=== PATIENT | male | born 1955 | race Caucasian/White ===

== ENCOUNTER 2016-10-20 13:30 | Outpatient (CLI) | payer BC ==
[~2016-10-20] VITALS: Ht 180.3 cm; Wt 95.3 kg
[~2016-10-20 13:30] MED LIST: ALLERGY INJECTION; PRD50T PO; RNT150T PO
== END 2016-10-20 13:50 ==
LOC: PREOP 13:30
PROVIDERS: ATTEND Surgery
DX: Z01.818 Encounter for other preprocedural examination (principal); Z12.11 Encounter for screening for malignant neoplasm of colon

== ENCOUNTER 2016-10-24 08:25 | Day surgery (SDC) | payer BC ==
[~2016-10-24] VITALS: Ht 180.3 cm; Wt 95.3 kg
[2016-10-24 08:35] VITALS: BP 140/106
[2016-10-24] MEDS ORDERED: NS IV 1000 ML 1,000 ML ONE (08:39)
[2016-10-24] MEDS ORDERED: NS IV 1000 ML 1,000 ML IV PRN (08:45)
--- NOTE | 2016-10-24 09:14 | Progress Note-Pre Operative ---
Pre-Operative Progress Note H&P Reviewed The H&P was reviewed, patient examined and no changes noted. Date H&P Reviewed: Oct 24, 2016 Time H&P Reviewed: 09:14 Pre-Operative Diagnosis: SCREENING COLONOSCOPY KENJI SMALLS DO Oct 24, 2016 9:14 am
[2016-10-24] MEDS ORDERED: proPOfol 200 MG/20 ML (DIPRIVAN) VIAL IV ONE (10:01)
[2016-10-24] MEDS ORDERED: MIDAZOLAM 2 MG/2 ML (VERSED) VIAL ONE (10:01)
--- NOTE | 2016-10-24 10:44 | Progress Note-Post Operative ---
Post-Operative Progess Note Surgeon (s)/Auto Bumper Straightener (s) Surgeon KENJI SMALLS DO Auto Bumper Straightener: 0 Pre-Operative Diagnosis SCREENING COLONOSCOPY Post-Operative Diagnosis diverticulosis Post-Op Procedure Note Date of Procedure: Oct 24, 2016 Name of Procedure Performed: colonoscopy Description of the Procedure: see note Findings of the Procedure see note Anesthesia Type per densitometrist Estimated blood loss (mL): none Specimen(s) collected/removed none KENJI SMALLS DO Oct 24, 2016 10:44 am
[2016-10-24 10:55] VITALS: BP 117/88
--- NOTE | 2016-10-24 11:03 | Discharge Inst-Simple/Standard ---
Discharge Inst-Standard Patient Instructions/Follow Up Plan of Care/Instructions/FU: Patient should follow up with Dr. Ruiz as needed Patient will need to increase fiber in his diet. Activity as Tolerated: Yes Discharge Diet: Other Diet (high fiber diet. ) NYA DE LEON APRN Oct 24, 2016 11:03
[2016-10-24 11:18] VITALS: BP 142/98
[2016-10-24 11:23] VITALS: BP 142/98
--- NOTE | 2016-10-24 12:50 | PROCEDURE REPORT ---
PROCEDURE PHYSICIAN: KENJI SMALLS DATE OF PROCEDURE: 10/24/2016 PREOPERATIVE DIAGNOSIS: Screening colonoscopy. POSTOPERATIVE DIAGNOSIS: Diverticulosis. PROCEDURE: Colonoscopy. SURGEON: Sara. ANESTHESIA: Per BRANCH LIBRARY CLERK. ESTIMATED BLOOD LOSS: None. COMPLICATIONS: None. INDICATIONS: The patient is a 61-year-old male without having colonoscopy performed before. He understood risks and benefits of procedure and wished to proceed with procedure. Consent was signed on the chart. PROCEDURE: The patient was taken to the endoscopy suite, placed in left lateral recumbent position. Timeout was performed. Digital rectal exam was performed. There are no palpable polyps, masses or ulcerations. The scope was inserted in the rectum and advanced all of the way to the cecum with minimal difficulty. Prep was adequate. The scope was slowly retracted back. There were no polyps, masses, ulcerations within the cecum, ascending, transverse, and descending colon. Within the sigmoid colon, there is minimal amount of diverticulosis present. There are no polyps, masses, ulcerations. The scope was continued to be slowly retracted back into the rectum, where the no other pathology was noted. The scope was inserted and removed multiple times without seeing any other pathology. The scope was then slowly retracted out until completely removed. The patient tolerated procedure well without any complications taken to recovery room in stable condition. RECOMMENDATIONS: The patient will need repeat colonoscopy in 10 years unless family history of colon cancer which would then be 5 years. If he has any problems prior to that, he should be reevaluated at that time. The patient should be on a high fiber diet. Job ID: [id number] Dictated Date: 10/24/2016 10:46:36 Pantograph Ii Engraver Date: 10/24/2016 12:46:00 / wei
== END 2016-10-24 11:25 | disposition home or self-care (01) ==
LOC: ENDO 08:25
PROVIDERS: ATTEND Surgery
DX: Z12.11 Encounter for screening for malignant neoplasm of colon (principal); K57.30 Diverticulosis of large intestine without perforation or abscess without bleeding

== ENCOUNTER 2018-07-02 08:52 | Inpatient (IN) | payer BC ==
[2018-07-02] VITALS (13 sets, daily range): BP systolic 112–168; BP diastolic 78–111
[~2018-07-02] VITALS: Ht 180.3 cm; Wt 95.9 kg
--- NOTE | 2018-07-02 09:14 | ED Chest Pain ---
General Stated Complaint: CHEST PAIN Source: patient, family (daughter) Exam Limitations: no limitations History of Present Illness Date Seen by Provider: Jul 02, 2018 Time Seen by Provider: 08:53 Initial Comments Patient presents to ER by private conveyance with his daughter and chief complaint that about 6:30 this morning when he got up to get a cup of coffee and started experiencing some sharp chest pain in the center of his chest that did not radiate. No nausea or sweats cough shortness of breath. Is not worse when he takes deep inspiration or pushing on his chest. He says he works out all the time so he wasn't sure if this was just soreness from working out or not but is different from anything as ever felt before. No primary history of coronary artery disease nor primary family HISTORY of coronary artery disease or early onset. The pain lasted for about an hour then went away. He took 2 aspirin is not sure what strength. He called Dr. De Luna's primary care doctor who worked him in this afternoon but then advised him to go ahead and come the ER for evaluation. No history of asthma, COPD. he does have a history of GERD but has not taken anything for that recently. He does drink occasional whiskey with his last drink being 2 days ago on the weekend. He is having no symptoms at this time. He's never had a heart catheterization or stress test. He states that he has elevated blood pressure at the doctor's office sometimes but has never been prescribed anything and has a blood pressure cuff that he uses at home and his blood pressure usually runs 120s over 80s. Allergies and Home Medications Allergies Coded Allergies: naproxen (Verified Allergy, Unknown, anaphylaxis, 07/02/18) Home Medications No Active Prescriptions or Reported Meds Patient Home Medication List Home Medication List Reviewed: Yes Review of Systems Review of Systems Constitutional: No chills, No fever EENTM: No Blurred Vision, No Double Vision Respiratory: Denies Cough, Denies Shortness of Air Cardiovascular: See HPI, Chest Pain; Denies Edema, Denies Lightheadedness, Denies Palpitations Gastrointestinal: Denies Abdominal Pain, Denies Constipated, Denies Diarrhea, Denies Nausea Genitourinary: Denies Burning, Denies Discharge Musculoskeletal: No back pain, No joint pain Skin: No pruritus, No rash Psychiatric/Neurological: Denies Headache, Denies Numbness Past Zafrbjh-Nnrcic-Ecfjzx Hx Patient Social History Alcohol Use: Occasionally Uses Alcohol Beverage of Choice: Whiskey Recreational Drug Use: No Smoking Status: Never a Smoker Recent Hopitalizations: No Immunizations Up To Date Tetanus Booster (TDap): Unknown Seasonal Allergies Seasonal Allergies: Yes Past Medical History Reproductive Disorders: No Physical Exam Vital Signs Vital Signs - First Documented 07/02/18 08:52 Temp 98.0 Pulse 65 Resp 18 B/P (MAP) 156/113 (127) Pulse Ox 94 O2 Delivery Room Air Capillary Refill : Height, Weight, BMI Height: 5'11.00" Weight: 210lbs. 0.0oz. 95.788405gx; 29.3 BMI Method: General Appearance: No Apparent Distress, WD/WN HEENT: PERRL/EOMI, Pharynx Normal, Moist Mucous Membranes Neck: Full Range of Motion, Normal Inspection Respiratory: Chest Non Tender, Lungs Clear, Normal Breath Sounds, No Accessory Muscle Use, No Respiratory Distress Cardiovascular: Regular Rate, Rhythm, No Edema Gastrointestinal: Normal Bowel Sounds, Non Tender, Soft Extremity: Normal Capillary Refill, No Pedal Edema Neurologic/Psychiatric: Alert, Oriented x3 Skin: Normal Color, Warm/Dry Progress/Results/Core Measures Results/Orders Lab Results Laboratory Tests Test 07/02/18 09:05 Range/Units White Blood Count 5.9 4.3-11.0 10^3/uL Red Blood Count 5.45 4.35-5.85 10^6/uL Hemoglobin 17.3 13.3-17.7 G/DL Hematocrit 50 40-54 % Mean Corpuscular Volume 91 80-99 FL Mean Corpuscular Hemoglobin 32 25-34 PG Mean Corpuscular Hemoglobin Concent 35 32-36 G/DL Red Cell Distribution Width 13.9 10.0-14.5 % Platelet Count 349 130-400 10^3/uL Mean Platelet Volume 9.2 7.4-10.4 FL Neutrophils (%) (Auto) 65 42-75 % Lymphocytes (%) (Auto) 23 12-44 % Monocytes (%) (Auto) 9 0-12 % Eosinophils (%) (Auto) 3 0-10 % Basophils (%) (Auto) 1 0-10 % Neutrophils # (Auto) 3.8 1.8-7.8 X 10^3 Lymphocytes # (Auto) 1.3 1.0-4.0 X 10^3 Monocytes # (Auto) 0.6 0.0-1.0 X 10^3 Eosinophils # (Auto) 0.2 0.0-0.3 10^3/uL Basophils # (Auto) 0.0 0.0-0.1 10^3/uL Prothrombin Time 12.8 12.2-14.7 SEC INR Comment 1.0 0.8-1.4 Activated Partial Thromboplast Time 28 24-35 SEC Sodium Level 140 135-145 MMOL/L Potassium Level 4.2 3.6-5.0 MMOL/L Chloride Level 108 H 98-107 MMOL/L Carbon Dioxide Level 22 21-32 MMOL/L Anion Gap 10 5-14 MMOL/L Blood Urea Nitrogen 17 7-18 MG/DL Creatinine 1.22 0.60-1.30 MG/DL Estimat Glomerular Filtration Rate > 60 BUN/Creatinine Ratio 14 Glucose Level 110 H 70-105 MG/DL Calcium Level 9.1 8.5-10.1 MG/DL Corrected Calcium 8.9 8.5-10.1 MG/DL Magnesium Level 2.4 1.8-2.4 MG/DL Total Bilirubin 0.9 0.1-1.0 MG/DL Aspartate Amino Transf (AST/SGOT) 35 H 5-34 U/L Alanine Aminotransferase (ALT/SGPT) 50 0-55 U/L Alkaline Phosphatase 69 40-136 U/L Myoglobin 185.5 H 10.0-92.0 NG/ML Troponin I 0.32 *H <0.30 NG/ML Total Protein 7.2 6.4-8.2 GM/DL Albumin 4.3 3.2-4.5 GM/DL My Orders Orders - ROSIE,BECK J Cbc With Automated Diff (07/02/18 09:06) Magnesium (07/02/18 09:06) Chest 1 View, Ap/Pa Only (07/02/18 09:06) Ekg Tracing (07/02/18 09:06) Cardiac Profile 1 (07/02/18 09:06) Comprehensive Metabolic Panel (07/02/18 09:06) Myoglobin Serum (07/02/18 09:06) Protime With Inr (07/02/18 09:06) Partial Thromboplastin Time (07/02/18 09:06) O2 (07/02/18 09:06) Monitor-Rhythm Ecg Trace Only (07/02/18 09:06) Lipid Panel (07/03/18 06:00) Aspirin Chewable Tablet (Baby Aspirin Ch (07/02/18 09:15) Saline Lock/Iv-Start (07/02/18 09:06) BNP (07/02/18 09:06) Medications Given in ED Current Medications Medications Dose Ordered Sig/Shari Route Start Time Stop Time Status Last Admin Dose Admin Aspirin 162 mg ONCE ONCE PO 07/02/18 09:15 07/02/18 09:16 DC 07/02/18 09:21 81 MG Vital Signs/I&O 07/02/18 08:52 Temp 98.0 Pulse 65 Resp 18 B/P (MAP) 156/113 (127) Pulse Ox 94 O2 Delivery Room Air Progress Progress Note : Time: 09:12 Progress Note He is not having any pain at this time. We are not sure how much aspirin he actually took some was given 2 more baby aspirin to chew up and swallow. Initial EKG doesn't show a STEMI. Chest wall is nontender and there is no pleuritic nature to the pain. 14 points low risk by ED ACS score. If the patient also has: (1) EKG without new ischemic changes and (2) negative initial and 2-hour troponins, then this patient is safe for discharge to early outpatient follow-up investigation (or proceed to earlier inpatient testing). If EKG with ischemic changes or positive troponin, they are not low risk and require normal risk stratification. Initial ECG Impression Date: Jul 02, 2018 Initial ECG Impression Time: 08:59 Initial ECG Rate: 70 Initial ECG Rhythm: Normal Sinus Initial ECG Intervals: Normal Initial ECG Impression: Normal, Nonspecific Changes Initial ECG Comparisson: No Previous ECG Available Comment No ST elevation or depression. Departure Communication (Admissions) Time/Spoke to Admitting Phy: 09:48 Dr. Alfaro agrees to accept the patient. Time/Spoke to Consulting Phy: 09:48 Discussed the case lab imaging findings with Dr. Yun, lab head and he wants Brilinta, heparin drip and echocardiogram and nothing by mouth status that he can try and catheter him later today if possible. Impression Primary Impression: NSTEMI (non-ST elevated myocardial infarction) Disposition: 09 ADMITTED INPATIENT Condition: Stable Admissions Decision to Admit Reason: Admit from ER (General) Decision to Admit/Date: Jul 02, 2018 Time/Decision to Admit Time: 09:48 Departure-Patient Inst. Referrals: ROSA DE LUNA MD (PCP) Primary Care Physician Scripts No Active Prescriptions or Reported Meds Copy Copies To 1: ROSA DE LUNA MD, TITUS J Jul 02, 2018 09:14
[2018-07-02 09:15] LABS: BASOPHILS % (AUTO) 1 % (0-10); EOSINOPHILS # (AUTO) 0.2 10^3/uL (0.0-0.3); EOSINOPHILS % (AUTO) 3 % (0-10); HEMATOCRIT 50 % (40-54); HEMOGLOBIN 17.3 G/DL (13.3-17.7); LYMPHOCYTES # (AUTO) 1.3 X 10^3 (1.0-4.0); LYMPHOCYTES % (AUTO) 23 % (12-44); MEAN CORPUSCULAR HEMOGLOBIN 32 PG (25-34); MEAN CORPUSCULAR HGB CONC 35 G/DL (32-36); MEAN CORPUSCULAR VOLUME 91 FL (80-99); MEAN PLATELET VOLUME 9.2 FL (7.4-10.4); MONOCYTES # (AUTO) 0.6 X 10^3 (0.0-1.0); MONOCYTES % (AUTO) 9 % (0-12); NEUTROPHILS # (AUTO) 3.8 X 10^3 (1.8-7.8); NEUTROPHILS % (AUTO) 65 % (42-75); PLATELET COUNT 349 10^3/uL (130-400); RED BLOOD COUNT 5.45 10^6/uL (4.35-5.85); RED CELL DISTRIBUTION WIDTH 13.9 % (10.0-14.5); WHITE BLOOD COUNT 5.9 10^3/uL (4.3-11.0)
[2018-07-02] MEDS ORDERED: ASPIRIN 81 MG CHEW (CHILDREN'S ASA) PO ONE (09:15)
[2018-07-02 09:32] LABS: ALANINE AMINOTRANSFERASE 50 U/L (0-55); ALBUMIN 4.3 GM/DL (3.2-4.5); ALKALINE PHOSPHATASE 69 U/L (40-136); BILIRUBIN,TOTAL 0.9 MG/DL (0.1-1.0); BUN/CREATININE RATIO 14; CALCIUM 9.1 MG/DL (8.5-10.1); CARBON DIOXIDE 22 MMOL/L (21-32); CHLORIDE 108 MMOL/L (98-107); CREATININE SERUM 1.22 MG/DL (0.60-1.30); GFR ESTIMATED > 60; GLUCOSE 110 MG/DL (70-105); MAGNESIUM 2.4 MG/DL (1.8-2.4); POTASSIUM 4.2 MMOL/L (3.6-5.0); PROTHROMBIN TIME PATIENT 12.8 SEC (12.2-14.7); SODIUM 140 MMOL/L (135-145); TOTAL PROTEIN 7.2 GM/DL (6.4-8.2)
--- NOTE | 2018-07-02 09:38 | Diagnostic Imaging Report ---
INDICATION: Chest pain starting earlier in the day. TECHNIQUE: Single view chest 9:11 AM. CORRELATION STUDY: None FINDINGS: Given technique, the heart size, mediastinal configuration and pulmonary vascularity are within normal limits. The lungs are clear with no consolidating infiltrate. There is no significant effusion or pneumothorax. IMPRESSION: 1. No radiographic findings to suggest acute abnormality of the chest. Dictated by: Dictated on workstation # [id number]
[2018-07-02 09:39] LABS: MYOGLOBIN SERUM 185.5 NG/ML (10.0-92.0)
[2018-07-02] MEDS ORDERED: HEParin DRIP 25000 UNIT/500ML 500 ML IV ONE (09:50)
[2018-07-02] MEDS ORDERED: HEParin 1000 UNIT/ML (10ML VIAL) FOR BOLUS IV SCH (10:00)
[2018-07-02] MEDS ORDERED: TICAGRELOR 90 MG TABLET (BRILINTA) PO ONE (10:00)
[2018-07-02] MEDS ORDERED: meTOproloL SUCCINATE 50 MG (TOPROL XL) TAB PO SCH (10:45)
[2018-07-02] MEDS ORDERED: NITROGLYCERIN 0.4 MG SL TABS BTL 25'S SL PRN (11:15)
[2018-07-02] MEDS ORDERED: lisINopril 10 MG (PRINIVIL) TABLET PO NR (11:15)
[2018-07-02] MEDS ORDERED: ONDANSETRON 4 MG/2 ML (SDV) Z0FRAN IV PRN (11:15)
[2018-07-02] MEDS ORDERED: CATHETER FLUSH 10 ML SYR IV PRN (11:15)
[2018-07-02] MEDS ORDERED: morphine INJ 4 MG/ML 1 ML (VIAL/SYRINGE) IV PRN (11:30)
[2018-07-02] MEDS: NS IV 1000 ML 1,000 ML IV SCH ×4 (11:41→22:57)
[2018-07-02] MEDS ORDERED: HEParin (CATH LAB) 2,000 ML IV ONE (12:01)
[2018-07-02] MEDS ORDERED: LIDOCAINE 1% INJ 20 ML 20 ML VIAL ONE (12:01)
[2018-07-02] MEDS ORDERED: HEParin DRIP 25000 UNIT/500ML 500 ML IV SCH (12:05)
[2018-07-02] MEDS ORDERED: MIDAZOLAM 5 MG/5 ML (VERSED) VIAL ONE (12:06)
[2018-07-02] MEDS ORDERED: fentaNYL INJECTION 100 MCG/2 ML AMP ONE (12:06)
[2018-07-02] MEDS ORDERED: HEParin 1000 UNIT/ML (10ML VIAL) FOR BOLUS ONE (13:01)
[2018-07-02] MEDS ORDERED: NITRO DRIP 25000 MCG/D5W 250 ML IV ONE (13:14)
--- NOTE | 2018-07-02 13:31 | Coronary Angiography & PCI ---
Coronary Angiography & PCI DATE OF PROCEDURE: 07/02/18 INDICATION: Non-STEMI PREOPERATIVE DIAGNOSIS: Non-STEMI POSTOPERATIVE DIAGNOSIS: Severe OM stenosis treated successfully with drug- eluting stent. HISTORY: This is a 62-year-old gentleman who presents with a complaint of chest pain since 630 this morning. The chest pain is sharp, substernal, does not radiate, no associated other cardiac symptoms. No exacerbating or relieving factors. Moderate to severe intensity. Patient does not have any significant medical or cardiac history. He specifically denies smoking, diabetes, hyperlipidemia. No significant premature family history of CAD. Possible history of hypertension.Therefore, the patient was scheduled for coronary angiography. PROCEDURES PERFORMED: 1.Coronary angiography. 2.Left heart catheterization. 3.PCI to the OM1. COMPLICATIONS: None. SPECIMENS: None. ESTIMATED BLOOD LOSS: 10 mL ANESTHESIA: Conscious sedation ANTICOAGULATION: IV heparin CONTRAST: 187 mL. FLUOROSCOPY: FLOUROSCOPY DOSE: [id number]. PROCEDURE DETAILS: The patient is a 62 male and was brought to the label operator after informed consent was taken. All the risks and complications were explained in detail; this included the risk of bleeding, vascular damage, stroke , OK and even . The patient was draped and prepped in the usual sterile fashion. Access was gained in the right femoral artery with a 6 Polish sheath. Coronary angiography was performed with a JR4 and a JL4 catheter. Left heart catheterization was performed with a pigtail catheter. Due to significant tortuosity in the right iliac artery, we exchanged the short sheath to a long 6 Polish by 45 cm sheath. FINDINGS: 1.Left main: Patent. 2.LAD: Mild disease. Severe ostial disease of a small first diagonal artery. 3.Left circumflex artery: Severe ostial stenosis of OM1. Stenosis severity is 99 percent. BHARAT 2 flow. 4.RCA: Mild disease. 5.Left heart catheterization: LV pressure 155/11 mmHg, LVEDP 14 mmHg. Aortic pressure 156/105 mmHg. No gradient across the aortic valve. Normal LV function with no wall motion abnormalities. RECOMMENDATIONS: PCI to OM1 is recommended. INTERVENTION DETAILS: EBU 3.5 guide catheter, whisper extra-support guidewire, IV heparin for anticoagulation. ACT was done once which was 195 seconds. Patient was given bolus aspirin and Brilinta. The lesion was crossed with the whisper wire and direct stenting was done with a science Amber 2.75 x 12 mm drug-eluting stent at 14 sho for 22 seconds. Mild spasm distal to the stent was noted which responded to 200 g of IC nitroglycerin. The stent was postdilated with an ASCENDANT MDX Quantum 3.0 x 8 mm balloon. The mid section was postdilated at 14 sho for 15 seconds and the proximal segment was postdilated at 16 sho for 32 seconds. Excellent angiographic results. The wire was taken out and showed no residual stenosis with BHARAT-3 flow distally. The patient tolerated the procedure well and did not have any complication. Right femoral artery was closed with the mynx device. CONCLUSIONS: 1. Severe OM1 stenosis treated successfully with drug-eluting stent. 2. Dual antiplatelet therapy for at least a year. Lisinopril, metoprolol, high -dose statin. 3. overnight in the ICU. 4. Echocardiogram. Stacey Yun MD, FACP, FACC, [facility] Interventional Cardiology Catarina YUN MD Jul 02, 2018 1:31 pm
--- NOTE | 2018-07-02 13:31 | Cardiac Procedure Note-CS/ASA ---
Pre-Procedure Note Pre-Op Procedure Note H&P Reviewed The H&P was reviewed, patient examined and no changes noted. Date H&P Reviewed: Jul 02, 2018 Time H&P Reviewed: 12:30 Conscious Sedation Pre-Proced Time 12:30 ASA Score 3 For ASA 3 and 4: Consider anesthesia and medical clearance. Also, for patients with a history of failed moderate sedation consider anesthesia. Airway Lungs Heart ASA score ASA 1: a normal healthy patient ASA 2: a patient with a mild systemic disease (mid diabetes, controlled hypertension, obesity ASA 3: a patient with a severe systemic disease that limits activity (angina , COPD, prior Myocardial infarction) ASA 4: a patient with an incapacitating disease that is a constant threat to life (CHF, renal failure) ASA 5: a moribund patient not expected to survive 24 hrs. (ruptured aneurysm) ASA 6: a declared brain patient whose organs are being harvested. For emergent operations, add the letter E after the classification Mallampati Classification Grade 1 Sedation Plan Analgesia, Amnesia, Plan communicated to team members, Discussed options with patient/fam, Discussed risks with patient/fam The patient is an appropriate candidate to undergo the planned procedure, sedation, and anesthesia. The patient immediately re-assessed prior to indication. Catarina PICKARD MD Jul 02, 2018 13:31
--- NOTE | 2018-07-02 13:31 | Consultation-Cardiology ---
HPI-Cardiology Cardiology Consultation: Date of Consultation 07/02/18 Date of Admission Attending Physician Kristine Alfaro MD Admitting Physician Collins Wilson MD Consulting Physician Catarina YUN MD HPI: Time Seen by a Provider: 12:30 Chief Complaint: Chest pain This is a 62-year-old gentleman who presents with a complaint of chest pain since 630 this morning. The chest pain is sharp, substernal, does not radiate, no associated other cardiac symptoms. No exacerbating or relieving factors. Moderate to severe intensity. Patient does not have any significant medical or cardiac history. He specifically denies smoking, diabetes, hyperlipidemia. No significant premature family history of CAD. Possible history of hypertension. Review of Systems-Cardiology Review of Systems Constitutional: As described under HPI; No As described under HPI, No no symptoms reported, No chills, No fever, No lightheadedness Eyes: No As described under HPI, No no symptoms reported, No blindness, No blurred vision, No contact lenses, No drainage, No decreased acuity, No foreign body sensation, No pain, No vision change Ears/Nose/Throat: No As described under HPI, No no symptoms reported, No chronic hearing loss, No ear discharge, No ear pain, No nasal drainage, No ulcerations Respiratory: No no symptoms reported; As described under HPI; No As described under HPI, No cough, No orthopnea, No shortness of breath, No SOB with excertion Cardiovascular: No no symptoms reported; As described under HPI; No As described under HPI; chest pain; No edema, No irregular heart rate, No lightheadedness, No palpitations Gastrointestinal: No no symptoms reported, No As described under HPI, No abdomen distended, No abdominal pain, No blood streaked bowels, No constipation , No diarrhea, No nausea, No vomiting, No stool coloration changes Genitourinary: No As described under HPI, No burning, No dysuria, No discharge , No frequency, No flank pain, No hematuria, No urgency Skin: No rash, No skin related problems, No ulcerations Psychiatric/Neurological: No anxiety, No depression, No seizure, No focal weakness, No syncope Hematologic: No bleeding abnormalities MLZ-Bcilgs-Nbgtxg Hx Patient Social History Alcohol Use: Denies Use Recreational Drug Use: No Smoking Status: Never a Smoker Recent Foreign Travel: No Recent Infectious Disease Expo: No Hospitalization with Isolation: Denies Physical Abuse Screen: No Sexual Abuse: No Immunizations Up To Date Tetanus Booster (TDap): Unknown Date of Influenza Vaccine: Jun 02, 2017 Past Medical History PMH As described under Assessment. Allergies and Home Medications Allergies Coded Allergies: naproxen (Verified Allergy, Unknown, anaphylaxis, 07/02/18) Home Medications No Active Prescriptions or Reported Meds Patient Home Medication List Home Medication List Reviewed: Yes Physical Exam-Cardiology Physical Exam Vital Signs/I&O 07/02/18 07/02/18 07/02/18 07/02/18 08:52 10:41 10:52 12:09 Temp 98.0 98.7 Pulse 65 64 67 68 Resp 18 18 B/P (MAP) 156/113 (127) 174/111 (132) 168/111 (130) Pulse Ox 94 98 O2 Delivery Room Air Room Air Room Air Capillary Refill : Less Than 3 Seconds Constitutional: appears stated age, AAO x 3; No apparent distress; well- developed, well-nourished HEENT: PERRL; No normal ENT inspection, No TMs normal, No pharynx normal, No scleral icterus (R), No scleral icterus (L), No pale conjunctivae (R), No pale conjunctivae (L), No photophobia, No TM abnormal (R), No TM abnormal (L), No pharyngeal erythema, No tonsillar exudate, No other, No discharge, No EOMI; hearing is well preserved; No hard of hearing; oral hygience is good; No ulceration, No xanthelasmas are seen Neck: No non-tender, No full range of motion, No supple, No normal inspection, No carotid bruit, No limited range of motion, No lymphadenopathy (R), No lymphadenopathy (L), No tender lateral, No tender midline, No thyromegaly, No other; carotid pulses are 2 + bilaterally; No with good upstrokes Respiratory: No accessory muscle use, No respiratory distress, No chest tender , No chest expansion is symmetric; chest is bilaterally symmetric; No lungs clear to percussion; lungs clear to auscultation; No crackles, No rhonchi, No rales, No stridor, No wheezing, No pleural rub, No other Cardiovascular: regular rate-rhythm; No irregularly irregular, No extra beats, No parasternal heave is noted, No JVD, No edema, No bradycardia, No tachycardia , No point of maximal impulse, No cardiac thrills are palpable; S1 and S2; No gallop/S3, No gallop/S4, No diastolic murmur, No systolic murmur, No friction rub, No click, No other Gastrointestinal: No tender, No soft, No round, No distended, No pulsatile mass , No organomegaly, No guarding, No rebound, No tenderness, No hernia, No mass, No audible bowel sounds, No abnormal bowel sounds, No abdominal bruits, No spleenomegaly, No other Rectal: deferred Extremities: No normal range of motion, No non-tender, No normal inspection, No pedal edema, No calf tenderness, No normal capillary refill, No pelvis stable , No calf tenderness, No inflammation, No pedal edema, No slow capillary refill , No swelling, No other, No abrasion, No clubbing, No cyanosis, No ecchymosis, No laceration, No no lower extremity edema bilateral, No significant edema, No tenderness, No wound Neurologic/Psychiatric: no motor/sensory deficits, alert, normal mood/affect, oriented x 3, power is 5/5 both on sides Skin: No normal color, No warm/dry, No cyanosis, No cool, No diaphoresis, No damp, No ecchymosis, No jaundice, No mottled, No pallor, No rash, No tattoos/ piercings, No ulcerations, No rash on exposed areas, No ulcerations on exposed areas, No other Data Review Labs Laboratory Tests 07/02/18 09:05: White Blood Count 5.9, Red Blood Count 5.45, Hemoglobin 17.3, Hematocrit 50, Mean Corpuscular Volume 91, Mean Corpuscular Hemoglobin 32, Mean Corpuscular Hemoglobin Concent 35, Red Cell Distribution Width 13.9, Platelet Count 349, Mean Platelet Volume 9.2, Neutrophils (%) (Auto) 65, Lymphocytes (%) (Auto) 23, Monocytes (%) (Auto) 9, Eosinophils (%) (Auto) 3, Basophils (%) (Auto) 1, Neutrophils # (Auto) 3.8, Lymphocytes # (Auto) 1.3, Monocytes # (Auto) 0.6, Eosinophils # (Auto) 0.2, Basophils # (Auto) 0.0, Prothrombin Time 12.8, INR Comment 1.0, Activated Partial Thromboplast Time 28, Sodium Level 140, Potassium Level 4.2, Chloride Level 108H, Carbon Dioxide Level 22, Anion Gap 10 , Blood Urea Nitrogen 17, Creatinine 1.22, Estimat Glomerular Filtration Rate > 60, BUN/Creatinine Ratio 14, Glucose Level 110H, Calcium Level 9.1, Corrected Calcium 8.9, Magnesium Level 2.4, Total Bilirubin 0.9, Aspartate Amino Transf ( AST/SGOT) 35H, Alanine Aminotransferase (ALT/SGPT) 50, Alkaline Phosphatase 69, Myoglobin 185.5H, Troponin I 0.32*H, B-Type Natriuretic Peptide 24.7, Total Protein 7.2, Albumin 4.3 ECG Impression ECG Initial ECG Rhythm: Normal Sinus Initial ECG Impression: Nonspecific Changes A/P-Cardiology Assessment/Admission Diagnosis Non-STEMI, Possible hypertension Plan Positive cardiac enzymes with prolonged episode of chest pain. Working diagnosis is non-STEMI. Bolus aspirin, Brilinta, IV heparin. Echocardiogram. Coronary angiography is recommended. All risks and complication explained in detail and informed consent taken. Hypertension: We'll start lisinopril and metoprolol. Check lipid profile. Thank you for your consultation. Please call me if you have any questions. Stacey Yun MD, FACP, FACC, FSCAI, FHRS, CCDS Interventional Cardiology Cardiac Electrophysiology Vascular Medicine and Endovascular Interventions Clinical Quality Measures DVT/VTE Risk/Contraindication: Risk Factor Score Per Nursin RFS Level Per Nursing on Admit: 2=Moderate Catarina YUN MD Jul 02, 2018 1:30 pm
[2018-07-02] MEDS ORDERED: PATIENT MAY USE OWN MEDS, ALL PO SCH (13:45)
--- NOTE | 2018-07-02 15:26 | History & Physical-Hospitalist ---
History of Present Illness HPI/Chief Complaint Pt is a 62yoCM who presented to the ER with a CC of chest pain that started this morning shortly after waking up. He states that he got up this morning and got coffee and after taking a sip developed sharp centralized chest pain. He felt nauseated with this as well but denied any SOB. He had no radiation to his jaw or neck but did have back pain. He has had no previous incidents of chest pain. He checked his BP and found it to be 180/118. He attempted to call his PCP after the pain persisted for an hour and was directed to the ER. He was found to have a Troponin of 0.32 in the ER and was admitted for NSTEMI. He states his pain is now resolved and his only concern is that he has some back pain from laying in the bed. Source: patient Date Seen 07/02/18 Time Seen by a Provider: 15:22 Attending Physician Juani Alfaro MD PCP Collins Wilson MD Referring Physician Date of Admission Jul 02, 2018 at 10:01 Home Medications & Allergies Home Medications Reviewed patient Home Medication Reconciliation performed by pharmacy medication reconciliations vehicle operator technician and/or nursing. Patients Allergies have been reviewed. Allergies Allergies Coded Allergies naproxen (Verified Allergy, Unknown, anaphylaxis, 07/02/18) Past Dzomxdi-Djthln-Flzxpu Hx Past Med/Social Hx: Reviewed Nursing Past Med/Soc Hx Patient Social History Alcohol Use: Denies Use Alcohol Beverage of Choice: Whiskey Recreational Drug Use: No Smoking Status: Never a Smoker Physical Abuse Screen: No Sexual Abuse: No Recent Foreign Travel: No Contact w/other who traveled: No Recent Hopitalizations: No Recent Infectious Disease Expo: No Immunizations Up To Date Tetanus Booster (TDap): Unknown Pediatric: No Date of Influenza Vaccine: Jun 02, 2017 Seasonal Allergies Seasonal Allergies: No Past Medical History Surgeries: Abdominal, Orthopedic Cardiac: Hypertension Reproductive: No History of Blood Disorders: No Family History Reviewed Nursing Family Hx No Pertinent Family Hx Review of Systems Constitutional: No diaphoresis EENTM: No blurred vision, No double vision, No nose congestion, No throat pain Respiratory: No cough, No dyspnea on exertion, No orthopnea, No short of breath Cardiovascular: see HPI Gastrointestinal: No abdominal pain, No constipation, No diarrhea, No nausea, No vomiting Genitourinary: No dysuria, No frequency Musculoskeletal: No joint pain, No muscle pain Skin: No lesions, No rash Psychiatric/Neurological: Denies Headache, Denies Numbness, Denies Tingling All Other Systems Reviewed Negative Unless Noted: Yes (Negative excepted noted.) Physical Exam Physical Exam Vital Signs Vital Signs - First Documented 07/02/18 08:52 Temp 98.0 Pulse 65 Resp 18 B/P (MAP) 156/113 (127) Pulse Ox 94 O2 Delivery Room Air Capillary Refill : Less Than 3 Seconds Height, Weight, BMI Height: 5'11.00" Weight: 211lbs. 0.0oz. 95.133156my; 29.4 BMI Method:Stated General Appearance: No Apparent Distress, WD/WN HEENT: PERRL/EOMI, Moist Mucous Membranes Neck: Non Tender, Supple Respiratory: Lungs Clear, No Respiratory Distress Cardiovascular: Regular Rate, Rhythm, No Murmur Gastrointestinal: Normal Bowel Sounds, Non Tender, Soft Extremity: Normal Capillary Refill, No Calf Tenderness Neurologic/Psychiatric: Alert, Oriented x3, Normal Mood/Affect Skin: Normal Color, Warm/Dry Results Results/Procedures Labs Laboratory Tests 07/02/18 09:05 07/03/18 03:45 Patient resulted labs reviewed. 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 noted with MAAME placed Continue DAPT Monitor in ICU Echo ordered Continue on statin, BB, JUSTUS (2) CAD (coronary artery disease) Assessment & Plan: microbiology lab technician results as above Qualifiers: Coronary Disease-Associated Artery/Lesion type: [place] artery [place] vs. transplanted heart: [place] heart Associated angina: with unstable angina Qualified Codes: I25.110 - Atherosclerotic heart disease of [place] coronary artery with unstable angina pectoris (3) Elevated blood pressure reading Assessment & Plan: Denies diagnosis of HTN Elevated on arrival Trend Clinical Quality Measures DVT/VTE Risk/Contraindication: Risk Factor Score Per Nursin RFS Level Per Nursing on Admit: 2=Moderate JUANI ALFARO MD Jul 02, 2018 15:26
[2018-07-02] MEDS: TICAGRELOR 90 MG TABLET (BRILINTA) PO SCH (20:42)
[2018-07-02] MEDS ORDERED: ATORVASTATIN 40 MG (LIPITOR) TABLET PO SCH (21:00)
[2018-07-02] MEDS ORDERED: ATORVASTATIN 80 MG (LIPITOR) TABLET PO SCH (21:00)
[2018-07-03] VITALS: BP 112/80
[2018-07-03 03:53] LABS: BASOPHILS % (AUTO) 0 % (0-10); EOSINOPHILS # (AUTO) 0.2 10^3/uL (0.0-0.3); EOSINOPHILS % (AUTO) 2 % (0-10); HEMATOCRIT 47 % (40-54); HEMOGLOBIN 15.8 G/DL (13.3-17.7); LYMPHOCYTES # (AUTO) 1.6 X 10^3 (1.0-4.0); LYMPHOCYTES % (AUTO) 18 % (12-44); MEAN CORPUSCULAR HEMOGLOBIN 31 PG (25-34); MEAN CORPUSCULAR HGB CONC 34 G/DL (32-36); MEAN CORPUSCULAR VOLUME 92 FL (80-99); MEAN PLATELET VOLUME 9.5 FL (7.4-10.4); MONOCYTES # (AUTO) 0.8 X 10^3 (0.0-1.0); MONOCYTES % (AUTO) 9 % (0-12); NEUTROPHILS # (AUTO) 6.5 X 10^3 (1.8-7.8); NEUTROPHILS % (AUTO) 71 % (42-75); PLATELET COUNT 302 10^3/uL (130-400); RED BLOOD COUNT 5.09 10^6/uL (4.35-5.85)
[2018-07-03 04:00] VITALS: BP 120/90
[2018-07-03 04:16] LABS: BUN/CREATININE RATIO 14; CALCIUM 8.4 MG/DL (8.5-10.1); CARBON DIOXIDE 21 MMOL/L (21-32); CHLORIDE 110 MMOL/L (98-107); CHOLESTEROL 186 MG/DL (< 200); CREATININE SERUM 1.07 MG/DL (0.60-1.30); GFR ESTIMATED > 60; GLUCOSE 97 MG/DL (70-105); HDL CHOLESTEROL 42 MG/DL (40-60); POTASSIUM 3.9 MMOL/L (3.6-5.0); SODIUM 140 MMOL/L (135-145); TRIGLYCERIDES 138 MG/DL (<150); VLDL CHOLESTEROL 28 MG/DL (5-40)
[2018-07-03 05:00] VITALS: BP 119/82
[2018-07-03] MEDS: NS IV 1000 ML 1,000 ML IV SCH ×2 (05:26→10:29)
[2018-07-03 06:00] VITALS: BP 115/85
[2018-07-03 08:00] VITALS: BP 121/87
--- NOTE | 2018-07-03 08:23 | Cardiology Progress Note ---
Cardiology SOAP Progress Note Subjective: No further cardiac complaints. Objective: I&O/Vital Signs 07/03/18 07/03/18 07/03/18 07/03/18 05:00 06:00 07:00 08:00 Pulse 76 56 59 Resp 22 15 B/P (MAP) 119/82 (94) 115/85 (95) Pulse Ox 94 92 95 O2 Delivery Room Air Room Air Room Air 07/03/18 07/03/18 07/03/18 07/03/18 08:00 08:00 08:54 08:55 Pulse 65 69 69 Resp 10 B/P (MAP) 121/87 (98) Pulse Ox 95 95 O2 Delivery Room Air Room Air 07/03/18 00:00 Intake Total 240 ml Output Total 1650 ml Balance -1410 ml Weight (Pounds): 211 Weight (Ounces): 6.4 Weight (Calculated Kilograms): 95.529259 Constitutional: appears stated age, AAO x 3; No apparent distress; well- developed, well-nourished Respiratory: No accessory muscle use, No respiratory distress, No chest tender , No chest expansion is symmetric; chest is bilaterally symmetric; No lungs clear to percussion; lungs clear to auscultation; No crackles, No rhonchi, No rales, No stridor, No wheezing, No pleural rub, No other Cardiovascular: regular rate-rhythm; No irregularly irregular, No extra beats, No parasternal heave is noted, No JVD, No edema, No bradycardia, No tachycardia , No point of maximal impulse, No cardiac thrills are palpable; S1 and S2; No gallop/S3, No gallop/S4, No diastolic murmur, No systolic murmur, No friction rub, No click, No other Gastrointestional: No tender, No soft, No round, No distended, No pulsatile mass, No organomegaly, No guarding, No rebound, No tenderness, No hernia, No mass, No audible bowel sounds, No abnormal bowel sounds, No abdominal bruits, No spleenomegaly, No other Extremities: No normal range of motion, No non-tender, No normal inspection, No pedal edema, No calf tenderness, No normal capillary refill, No pelvis stable , No calf tenderness, No inflammation, No pedal edema, No slow capillary refill , No swelling, No other, No abrasion, No clubbing, No cyanosis, No ecchymosis, No laceration, No no lower extremity edema bilateral, No significant edema, No tenderness, No wound Neurologic/Psychiatric: no motor/sensory deficits, alert, normal mood/affect, oriented x 3, power is 5/5 both on sides Skin: No normal color, No warm/dry, No cyanosis, No cool, No diaphoresis, No damp, No ecchymosis, No jaundice, No mottled, No pallor, No rash, No tattoos/ piercings, No ulcerations, No rash on exposed areas, No ulcerations on exposed areas, No other Results/Procedures: Labs Laboratory Tests 07/03/18 03:45: White Blood Count 9.0, Red Blood Count 5.09, Hemoglobin 15.8, Hematocrit 47, Mean Corpuscular Volume 92, Mean Corpuscular Hemoglobin 31, Mean Corpuscular Hemoglobin Concent 34, Red Cell Distribution Width 14.0, Platelet Count 302, Mean Platelet Volume 9.5, Neutrophils (%) (Auto) 71, Lymphocytes (%) (Auto) 18, Monocytes (%) (Auto) 9, Eosinophils (%) (Auto) 2, Basophils (%) (Auto) 0, Neutrophils # (Auto) 6.5, Lymphocytes # (Auto) 1.6, Monocytes # (Auto) 0.8, Eosinophils # (Auto) 0.2, Basophils # (Auto) 0.0, Sodium Level 140, Potassium Level 3.9, Chloride Level 110H, Carbon Dioxide Level 21, Anion Gap 9, Blood Urea Nitrogen 15, Creatinine 1.07, Estimat Glomerular Filtration Rate > 60, BUN/ Creatinine Ratio 14, Glucose Level 97, Calcium Level 8.4L, Troponin I 5.47*H, Triglycerides Level 138, Cholesterol Level 186, LDL Cholesterol Direct 126, VLDL Cholesterol 28, HDL Cholesterol 42 A/P: Assessment/Dx: Non-STEMI, Possible hypertension, Hyperlipidemia Plan: Non-STEMI, status post PCI with drug-eluting stent to OM1 artery. Dual antiplatelet therapy. Hypertension: Low-dose lisinopril and metoprolol. Hyperlipidemia: Start high-dose atorvastatin. Okay to discharge to follow-up in office in 2-3 weeks. Thank you for your consultation. Please call me if you have any questions. Stacey Yun MD, FACP, FACC, FSCAI, FHRS, CCDS Interventional Cardiology Cardiac Electrophysiology Vascular Medicine and Endovascular Interventions Catarina YUN MD Jul 03, 2018 08:23
[2018-07-03] MEDS ORDERED: METO-387 PO (08:43)
[2018-07-03] MEDS ORDERED: TICA90TA PO (08:43)
[2018-07-03] MEDS ORDERED: LISI-556 PO (08:43)
[2018-07-03] MEDS ORDERED: ATOR80TA76 PO (08:43)
[2018-07-03] MEDS ORDERED: ASPI-983 PO (08:43)
[2018-07-03] MEDS: TICAGRELOR 90 MG TABLET (BRILINTA) PO SCH (08:44)
--- NOTE | 2018-07-03 08:51 | Discharge Inst-Simple/Standard ---
Discharge Inst-Standard Discharge Medications New, Converted or Re-Newed RX: Transmitted to Pharmacy Patient Instructions/Follow Up Plan of Care/Instructions/FU: Please continue to take your medications as written. Please follow up with Dr Wilson's office on 07/17/18 at 945am and with Dr Yun as scheduled. Activity as Tolerated: Yes Discharge Diet: Cardiac Diet Return to The Hospital For: Chest pain, shortness of breath, weakness, if you feel you are getting worse. JUANI DILL MD Jul 03, 2018 08:51
--- NOTE | 2018-07-03 08:59 | Discharge Summary-Hospitalist ---
Diagnosis/Chief Complaint Date of Admission Jul 02, 2018 at 10:01 Date of Discharge Discharge Date: Jul 03, 2018 Admission Diagnosis NSTEMI Discharge Diagnosis (1) NSTEMI (non-ST elevated myocardial infarction) Status: Acute Assessment & Plan: Admitted for NSTEMI Cardiology consulted, appreciate recs Taken to laborer syrup machine and sever stenosis of OM! noted with MAAME placed Continue DAPT Monitor in ICU Echo ordered Continue on statin, BB, DERICK (2) CAD (coronary artery disease) Assessment & Plan: label folder results as above (3) Elevated blood pressure reading Assessment & Plan: Denies diagnosis of HTN Elevated on arrival Trend Discharge Summary Procedures/Consulations Dr Yun- Cardiology Discharge Physical Exam Allergies: Coded Allergies: naproxen (Verified Allergy, Unknown, anaphylaxis, 07/02/18) Vitals & I&Os Vital Signs Date Time Temp Pulse Resp B/P (MAP) Pulse Ox O2 Delivery O2 Flow Rate FiO2 07/03/18 08:00 95 Room Air 07/03/18 08:00 65 10 121/87 (98) 07/03/18 04:10 98.9 General Appearance: No Apparent Distress, WD/WN Cardiovascular: Regular Rate, Rhythm, No Murmur Gastrointestinal: Normal Bowel Sounds, Soft Neurologic/Psychiatric: Alert, Oriented x3 Hospital Course Pt is a 62yoCM who was admitted for NSTEMI and taken urgently to laborer syrup machine which revealed svere stenosis of OM1 which was stented with a MAAME. He was started on beta jolene, DERICK inhibitor, stating, aspirin, and Brilinta following cath. His symptoms resolved and he was discharged to home to follow up with his PCP and with Dr Yun. I called and discussed his stay with Remington Darden APRN at Dr Wilson's office. Labs (last 24 hrs) Laboratory Tests 07/03/18 03:45: White Blood Count 9.0, Red Blood Count 5.09, Hemoglobin 15.8, Hematocrit 47, Mean Corpuscular Volume 92, Mean Corpuscular Hemoglobin 31, Mean Corpuscular Hemoglobin Concent 34, Red Cell Distribution Width 14.0, Platelet Count 302, Mean Platelet Volume 9.5, Neutrophils (%) (Auto) 71, Lymphocytes (%) (Auto) 18, Monocytes (%) (Auto) 9, Eosinophils (%) (Auto) 2, Basophils (%) (Auto) 0, Neutrophils # (Auto) 6.5, Lymphocytes # (Auto) 1.6, Monocytes # (Auto) 0.8, Eosinophils # (Auto) 0.2, Basophils # (Auto) 0.0, Sodium Level 140, Potassium Level 3.9, Chloride Level 110H, Carbon Dioxide Level 21, Anion Gap 9, Blood Urea Nitrogen 15, Creatinine 1.07, Estimat Glomerular Filtration Rate > 60, BUN/ Creatinine Ratio 14, Glucose Level 97, Calcium Level 8.4L, Troponin I 5.47*H, Triglycerides Level 138, Cholesterol Level 186, LDL Cholesterol Direct 126, VLDL Cholesterol 28, HDL Cholesterol 42 Patient resulted labs reviewed. Pending Labs Laboratory Tests 07/03/18 03:45: White Blood Count 9.0, Red Blood Count 5.09, Hemoglobin 15.8, Hematocrit 47, Mean Corpuscular Volume 92, Mean Corpuscular Hemoglobin 31, Mean Corpuscular Hemoglobin Concent 34, Red Cell Distribution Width 14.0, Platelet Count 302, Mean Platelet Volume 9.5, Neutrophils (%) (Auto) 71, Lymphocytes (%) (Auto) 18, Monocytes (%) (Auto) 9, Eosinophils (%) (Auto) 2, Basophils (%) (Auto) 0, Neutrophils # (Auto) 6.5, Lymphocytes # (Auto) 1.6, Monocytes # (Auto) 0.8, Eosinophils # (Auto) 0.2, Basophils # (Auto) 0.0, Sodium Level 140, Potassium Level 3.9, Chloride Level 110, Carbon Dioxide Level 21, Anion Gap 9, Blood Urea Nitrogen 15, Creatinine 1.07, Estimat Glomerular Filtration Rate > 60, BUN/ Creatinine Ratio 14, Glucose Level 97, Calcium Level 8.4, Troponin I 5.47, Triglycerides Level 138, Cholesterol Level 186, LDL Cholesterol Direct 126, VLDL Cholesterol 28, HDL Cholesterol 42 Imaging: Reviewed Imaging Report Discussion & Recommendations Discharge Planning: >30 minutes discharge planning Discharge Home Medications: Active Scripts Active Aspirin EC (Aspirin) 81 Mg Tablet.dr 81 Mg PO DAILY Lisinopril 5 Mg Tablet 5 Mg PO DAILY@0900 Metoprolol Succinate 25 Mg Tab.er.24h 25 Mg PO DAILY Atorvastatin Calcium 80 Mg Tablet 80 Mg PO HS Brilinta (Ticagrelor) 90 Mg Tablet 90 Mg PO BID Instructions to patient/family Please see electronic discharge instructions given to patient. Clinical Quality Measures AMI/AHF: D/C Medications Addressed: Derick inhibitors, Beta jolene DVT/VTE Risk/Contraindication: Risk Factor Score Per Nursin RFS Level Per Nursing on Admit: 2=Moderate Problem Qualifiers (1) CAD (coronary artery disease): Coronary Disease-Associated Artery/Lesion type: [place] artery [place] vs. transplanted heart: [place] heart Associated angina: with unstable angina Qualified Codes: I25.110 - Atherosclerotic heart disease of [place] coronary artery with unstable angina pectoris JUANI DILL MD Jul 03, 2018 08:59
[2018-07-03] MEDS ORDERED: lisINopril 5 MG (PRINIVIL) TABLET PO SCH (09:00)
[2018-07-03] MEDS ORDERED: ASPIRIN E.C. 81 MG (ECOTRIN) TAB PO SCH ×2 (09:00)
== END 2018-07-03 10:30 | disposition home or self-care (01) | DRG 247 ==
LOC: EDUNIT# 08:52 → ER 08:53 → ICU 10:01
PROVIDERS: ADMIT Family Medicine; ATTEND Family Medicine
PROC: 027034Z Dilation of Coronary Artery, One Artery with Drug-eluting Intraluminal Device, Percutaneous Approach (ICD-10-PCS; principal; 2018-07-02)
PROC: 4A023N7 Measurement of Cardiac Sampling and Pressure, Left Heart, Percutaneous Approach (ICD-10-PCS; 2018-07-02)
PROC: B2111ZZ Fluoroscopy of Multiple Coronary Arteries using Low Osmolar Contrast (ICD-10-PCS; 2018-07-02)
PROC: B2151ZZ Fluoroscopy of Left Heart using Low Osmolar Contrast (ICD-10-PCS; 2018-07-02)
DX: I21.4 Non-ST elevation (NSTEMI) myocardial infarction (principal); I25.110 Atherosclerotic heart disease of native coronary artery with unstable angina pectoris; I10 Essential (primary) hypertension; E78.5 Hyperlipidemia, unspecified
CPT/HCPCS: 36415; 71045; 80048; 80053; 80061; 83735; 83874; 83880; 84484; 85025; 85347; 85610; 85730; 93005; 93041; 93306; 93458

== ENCOUNTER 2018-07-05 14:18 | Observation (INO) | payer BC ==
[~2018-07-05] VITALS: Ht 180.3 cm; Wt 93.5 kg
[2018-07-05] VITALS (12 sets, daily range): BP systolic 126–138; BP diastolic 76–88
[~2018-07-05 14:18] MED LIST changes: +ASPI-983 PO; +ATOR80TA76 PO; +LISI-556 PO; +METO-387 PO; +TICA90TA PO
[2018-07-05] MEDS ORDERED: NITROGLYCERIN 0.4 MG SL TABS BTL 25'S SL ONE (14:40)
[2018-07-05] MEDS ORDERED: ASPIRIN 81 MG CHEW (CHILDREN'S ASA) ONE (14:40)
--- NOTE | 2018-07-05 15:09 | ED Chest Pain ---
General Chief Complaint: Cardiac/General Problems Stated Complaint: WEAKNESS; "NOT FEELING WELL" Source: patient, family ( and daughter) Exam Limitations: no limitations History of Present Illness Date Seen by Provider: Jul 05, 2018 Time Seen by Provider: 14:35 Initial Comments Patient presents to ER by private conveyance with chief complaint that he just recently 3 days ago had a heart catheter done and a stent placed by Dr. Yun and today around 10:00 the morning and started feeling weak and tired and worn out but he had no energy. Couple hours ago he started having some brief right lower chest pain that did not radiate and he describes them as dull, achy lasting for a minute or so and then going away. He has had about 2 or 3 episodes of this today. This is different from the pain he felt earlier this week before having his non-ST elevation [place]. He is following marginally short of breath and has been coughing some. He denies any fevers nausea sweats chills, history of diabetes, smoking, hypertension or hyperlipidemia. He was given Brilinta and statins and his been taking them appropriately. Allergies and Home Medications Allergies Coded Allergies: naproxen (Verified Allergy, Unknown, anaphylaxis, 07/02/18) Home Medications Aspirin 81 Mg Tablet.dr, 81 MG PO DAILY Prescribed by: JUANI DILL on 07/03/18 0843 Atorvastatin Calcium 80 Mg Tablet, 80 MG PO HS Prescribed by: JUANI DILL on 07/03/18 0843 Lisinopril 5 Mg Tablet, 5 MG PO DAILY@0900 Prescribed by: JUANI DILL on 07/03/18 0843 Metoprolol Succinate 25 Mg Tab.er.24h, 25 MG PO DAILY Prescribed by: JUANI DILL on 07/03/18 0843 Ticagrelor 90 Mg Tablet, 90 MG PO BID Prescribed by: JUANI DILL on 07/03/18 0843 Patient Home Medication List Home Medication List Reviewed: Yes Review of Systems Review of Systems Constitutional: No chills, No diaphoresis; malaise, weakness EENTM: No Blurred Vision, No Double Vision Respiratory: Cough; Denies Shortness of Air, Denies SOA With Exertion Cardiovascular: See HPI, Chest Pain; Denies Edema, Denies Irregular Heart Rate , Denies Lightheadedness, Denies Palpitations, Denies Syncope Gastrointestinal: Denies Abdominal Pain, Denies Constipated, Denies Diarrhea, Denies Nausea Genitourinary: Denies Burning, Denies Discharge Musculoskeletal: No back pain, No joint pain Skin: No pruritus, No rash Psychiatric/Neurological: Denies Numbness, Denies Paresthesia Past [id number] Hx Patient Social History Alcohol Use: Occasionally Uses Alcohol Beverage of Choice: Whiskey Recreational Drug Use: No Smoking Status: Never a Smoker Recent Hopitalizations: No Immunizations Up To Date Tetanus Booster (TDap): Unknown PED Vaccines UTD: No Date of Influenza Vaccine: Jun 02, 2018 Seasonal Allergies Seasonal Allergies: No Past Medical History Surgeries: Yes Abdominal, Orthopedic Respiratory: No Cardiac: Yes Hypertension Neurological: No Reproductive Disorders: No Genitourinary: No Gastrointestinal: No Musculoskeletal: No Endocrine: No HEENT: No Cancer: No Psychosocial: No Integumentary: No Blood Disorders: No Family Medical History No Pertinent Family Hx Physical Exam Vital Signs Vital Signs - First Documented 07/05/18 14:30 Temp 98.4 Pulse 69 Resp 12 B/P (MAP) 134/88 (103) Pulse Ox 95 O2 Delivery Room Air Capillary Refill : Height, Weight, BMI Height: 5'11.00" Weight: 211lbs. 6.4oz. 95.081378lq; 29.4 BMI Method:Stated General Appearance: WD/WN, Anxious, Mild Distress HEENT: PERRL/EOMI, Pharynx Normal, Moist Mucous Membranes Neck: Full Range of Motion, Normal Inspection, Non Tender, Supple Respiratory: Chest Non Tender, Lungs Clear, Normal Breath Sounds, No Accessory Muscle Use, No Respiratory Distress Cardiovascular: Regular Rate, Rhythm, No Edema, Normal Peripheral Pulses Gastrointestinal: Normal Bowel Sounds, No Organomegaly, Non Tender, Soft Extremity: Normal Capillary Refill Neurologic/Psychiatric: Alert, Oriented x3, No Motor/Sensory Deficits Skin: Normal Color, Warm/Dry Progress/Results/Core Measures Results/Orders Lab Results Laboratory Tests Test 07/05/18 14:40 07/05/18 15:15 Range/Units White Blood Count 8.6 4.3-11.0 10^3/uL Red Blood Count 5.25 4.35-5.85 10^6/uL Hemoglobin 16.3 13.3-17.7 G/DL Hematocrit 49 40-54 % Mean Corpuscular Volume 93 80-99 FL Mean Corpuscular Hemoglobin 31 25-34 PG Mean Corpuscular Hemoglobin Concent 34 32-36 G/DL Red Cell Distribution Width 13.7 10.0-14.5 % Platelet Count 321 130-400 10^3/uL Mean Platelet Volume 9.9 7.4-10.4 FL Neutrophils (%) (Auto) 72 42-75 % Lymphocytes (%) (Auto) 18 12-44 % Monocytes (%) (Auto) 7 0-12 % Eosinophils (%) (Auto) 2 0-10 % Basophils (%) (Auto) 0 0-10 % Neutrophils # (Auto) 6.2 1.8-7.8 X 10^3 Lymphocytes # (Auto) 1.6 1.0-4.0 X 10^3 Monocytes # (Auto) 0.6 0.0-1.0 X 10^3 Eosinophils # (Auto) 0.2 0.0-0.3 10^3/uL Basophils # (Auto) 0.0 0.0-0.1 10^3/uL Sodium Level 138 135-145 MMOL/L Potassium Level 3.9 3.6-5.0 MMOL/L Chloride Level 109 H 98-107 MMOL/L Carbon Dioxide Level 16 L 21-32 MMOL/L Anion Gap 13 5-14 MMOL/L Blood Urea Nitrogen 17 7-18 MG/DL Creatinine 1.23 0.60-1.30 MG/DL Estimat Glomerular Filtration Rate 60 BUN/Creatinine Ratio 14 Glucose Level 126 H 70-105 MG/DL Calcium Level 9.1 8.5-10.1 MG/DL Corrected Calcium 9.1 8.5-10.1 MG/DL Magnesium Level 2.2 1.8-2.4 MG/DL Total Bilirubin 0.6 0.1-1.0 MG/DL Aspartate Amino Transf (AST/SGOT) 30 5-34 U/L Alanine Aminotransferase (ALT/SGPT) 41 0-55 U/L Alkaline Phosphatase 64 40-136 U/L Myoglobin 36.4 10.0-92.0 NG/ML Troponin I 1.32 *H <0.30 NG/ML B-Type Natriuretic Peptide 43.6 <100.0 PG/ML Total Protein 7.0 6.4-8.2 GM/DL Albumin 4.0 3.2-4.5 GM/DL Lipase 95 H 8-78 U/L Prothrombin Time 13.6 12.2-14.7 SEC INR Comment 1.0 0.8-1.4 Activated Partial Thromboplast Time 27 24-35 SEC My Orders Orders - BECK VELEZ Ekg Tracing (07/05/18 14:34) Continuous Ekg Monitoring (07/05/18 14:34) Nitroglycerin 0.4 Mg Btl 25's (Nitrostat (07/05/18 14:40) Aspirin Chewable Tablet (Baby Aspirin Ch (07/05/18 14:40) Cbc With Automated Diff (07/05/18 15:01) Magnesium (07/05/18 15:01) Chest 1 View, Ap/Pa Only (07/05/18 15:01) Cardiac Profile 1 (07/05/18 15:01) Comprehensive Metabolic Panel (07/05/18 15:01) Myoglobin Serum (07/05/18 15:01) Protime With Inr (07/05/18 15:01) Partial Thromboplastin Time (07/05/18 15:01) O2 (07/05/18 15:01) Lipid Panel (07/06/18 06:00) Aspirin Chewable Tablet (Baby Aspirin Ch (07/05/18 15:15) Nitroglycerin 0.4 Mg Btl 25's (Nitrostat (07/05/18 15:15) Saline Lock/Iv-Start (07/05/18 15:01) Lipase (07/05/18 15:01) BNP (07/05/18 15:01) Medications Given in ED Current Medications Medications Dose Ordered Sig/Shari Route Start Time Stop Time Status Last Admin Dose Admin Aspirin 81 mg STK-MED ONCE .ROUTE 07/05/18 14:40 07/05/18 14:43 DC 07/05/18 14:44 81 MG Nitroglycerin 0.4 mg STK-MED ONCE SL 07/05/18 14:40 07/05/18 14:43 DC 07/05/18 14:44 0.4 MG Vital Signs/I&O 07/05/18 14:30 Temp 98.4 Pulse 69 Resp 12 B/P (MAP) 134/88 (103) Pulse Ox 95 O2 Delivery Room Air Progress Progress Note : Time: 15:07 Progress Note 3 days after heart catheter with some weakness and right-sided chest pain. We will obtain a troponin and EKG which initially didn't show anything new. We'll start with some aspirin and nitroglycerin as well. Symptoms do not sound like GERD however they could be diaphragmatic. Labs, chest x-ray. Could also be related to pneumonia since he's had a cough lately. Metoprolol could mask a tachycardia. He is afebrile so we'll see what the chest x-ray shows. Could be below the diaphragm causing his under the right breast pain as well. He is not having any tenderness around the epigastrium or right upper quadrant. Cardiac catheterization 3 days ago status post non-STEMI with drug-eluting stent to OM1 artery on dual antiplatelet therapy Brilinta, lisinopril, metoprolol, aspirin, high-dose atorvastatin. Echocardiogram by Dr. Yun 07/02/2018: EF of 55-65%. Possible hypokinesis of the apical lateral myocardium. Initial ECG Impression Date: Jul 05, 2018 Initial ECG Impression Time: 14:40 Initial ECG Rate: 61 Initial ECG Rhythm: Normal Sinus Initial ECG Intervals: Normal Initial ECG Impression: Normal, Nonspecific Changes Initial ECG Comparisson: Unchanged Comment Some respiratory artifact but no ST changes. Diagnostic Imaging Diagonstic Imaging: Xray Plain Films/CT/US/NM/MRI: chest (1v) Comments NAME: [facility] REC#: [id number] PHYSICIAN: BECK VELEZ MD CC: RUTH FREITAS MD; BECK VELEZ Page 1 of 1 RADIOLOGY REPORT [facility] [place] [place] CC: RUTH FREITAS MD; BECK VELEZ Page 1 of 1 RADIOLOGY REPORT NAME: [facility] REC#: [id number] PT STATUS: REG ER : 1955 PHYSICIAN: BECK VELEZ MD ADMIT DATE: 07/05/18/ER Signed Date of Exam: 07/05/18 CHEST 1 VIEW, AP/PA ONLY INDICATION: Right-sided chest pain. TIME OF EXAM: 3:11 p.m. COMPARISON: Correlation is made with prior exam from 07/02/2018. FINDINGS: The heart size is stable. The lungs are clear. No infiltrates are seen. No effusion or pneumothorax is identified. IMPRESSION: No acute cardiopulmonary process is detected. Dictated by: Dictated on workstation # [id number] Dict: 07/05/18 1520 Trans: 07/05/18 1545 Interpreted by: RUTH FREITAS MD Electronically signed by: RUTH FREITAS MD 07/05/18 1545 Reviewed: Reviewed by Me Departure Communication (Admissions) Time/Spoke to Admitting Phy: 16:12 He will come and see the patient personally. He recommends probably some Imdur or retinal is seen. He does not see anything wrong with an overnight observation and trending the troponin. The myoglobin is not elevated and this is reassuring. After visiting with the patient he feels his pain is more right upper quadrant pain probably related to gallbladder and its mild but reproducible to palpation. Plans to observe and repeat a troponin in the morning and make sure he gets his aspirin, Brilinta and do an EKG in the morning as well. He agrees to observe the patient. Impression Primary Impression: Chest pain Qualified Codes: R07.9 - Chest pain, unspecified Additional Impressions: CAD (coronary artery disease) Qualified Codes: I25.119 - Atherosclerotic heart disease of [place] coronary artery with unspecified angina pectoris Right upper quadrant abdominal pain Disposition: ADMITTED INPATIENT Condition: Stable Admissions Decision to Admit Reason: Admit from ER (General) Decision to Admit/Date: Jul 05, 2018 Time/Decision to Admit Time: 16:11 Departure-Patient Inst. Referrals: ROSA DE LUNA MD (PCP) Primary Care Physician Copy Copies To 1: Catarina YUN MD; ROSA DE LUNA MD, TITUS J Jul 05, 2018 15:09
[2018-07-05 15:14] LABS: BASOPHILS % (AUTO) 0 % (0-10); EOSINOPHILS # (AUTO) 0.2 10^3/uL (0.0-0.3); EOSINOPHILS % (AUTO) 2 % (0-10); HEMATOCRIT 49 % (40-54); HEMOGLOBIN 16.3 G/DL (13.3-17.7); LYMPHOCYTES # (AUTO) 1.6 X 10^3 (1.0-4.0); LYMPHOCYTES % (AUTO) 18 % (12-44); MEAN CORPUSCULAR HEMOGLOBIN 31 PG (25-34); MEAN CORPUSCULAR HGB CONC 34 G/DL (32-36); MEAN CORPUSCULAR VOLUME 93 FL (80-99); MEAN PLATELET VOLUME 9.9 FL (7.4-10.4); MONOCYTES # (AUTO) 0.6 X 10^3 (0.0-1.0); MONOCYTES % (AUTO) 7 % (0-12); NEUTROPHILS # (AUTO) 6.2 X 10^3 (1.8-7.8); NEUTROPHILS % (AUTO) 72 % (42-75); PLATELET COUNT 321 10^3/uL (130-400); RED BLOOD COUNT 5.25 10^6/uL (4.35-5.85); RED CELL DISTRIBUTION WIDTH 13.7 % (10.0-14.5); WHITE BLOOD COUNT 8.6 10^3/uL (4.3-11.0)
[2018-07-05] MEDS ORDERED: ASPIRIN 81 MG CHEW (CHILDREN'S ASA) PO ONE (15:15)
[2018-07-05] MEDS ORDERED: NITROGLYCERIN 0.4 MG SL TABS BTL 25'S SL PRN ×2 (15:15→17:45)
--- NOTE | 2018-07-05 15:28 | Diagnostic Imaging Report ---
INDICATION: Right-sided chest pain. TIME OF EXAM: 3:11 p.m. COMPARISON: Correlation is made with prior exam from 07/02/2018. FINDINGS: The heart size is stable. The lungs are clear. No infiltrates are seen. No effusion or pneumothorax is identified. IMPRESSION: No acute cardiopulmonary process is detected. Dictated by: Dictated on workstation # [id number]
[2018-07-05 15:30] LABS: BILIRUBIN,TOTAL 0.6 MG/DL (0.1-1.0); CALCIUM 9.1 MG/DL (8.5-10.1); CREATININE SERUM 1.23 MG/DL (0.60-1.30); MAGNESIUM 2.2 MG/DL (1.8-2.4); POTASSIUM 3.9 MMOL/L (3.6-5.0)
[2018-07-05 15:34] LABS: PROTHROMBIN TIME PATIENT 13.6 SEC (12.2-14.7)
[2018-07-05 15:36] LABS: MYOGLOBIN SERUM 36.4 NG/ML (10.0-92.0)
--- NOTE | 2018-07-05 16:31 | Cardiology History & Physical ---
HPI-Cardiology Cardiology Consultation Date of Consultation 07/05/18 Date of Admission Time Seen by Provider: 16:28 Indication: chest pain HPI 62 years old gentleman with history of coronary artery disease, recent myocardial infarction had a stent to the obtuse marginal branch. Was discharged recently, he contacted me today complaining of generalized weakness, loss of energy and hypotension, reported that his blood pressure was in the 60s , felt extremely weak. Came into the emergency room and started having recurrent episodes of chest pain described it as right sided sharp achiness in the chest. Not similar to his previous pain with his heart attack. Currently feeling better. Reported that his blood pressure was extremely low and he felt extremely weak but it improved and he started to feel better PMH-Cardiology Immunizations Up To Date Tetanus Booster (DTap): Unknown Date of Influenza Vaccine: Jun 02, 2018 Seasonal Allergies Seasonal Allergies: No Surgeries Yes Respiratory No Cardiovascular Yes Hypertension Neurological No Reproductive System Hx Reproductive Disorders: No Genitourinary No Gastrointestinal No Musculoskeletal No Endocrine No HEENT No Cancer No Psychosocial No Integumentary No Blood Transfusions No Social History Patient Social History Marrital Status: Employed/Student: employed Alcohol Use: Occasionally Uses Recreational Drug Use: No Recent Foreign Travel: No Contact w/other who traveled: No Recent Infectious Disease Expo: No Family Hx Significant Family History: No Pertinent Family Hx Other Noncontributory ROS-Cardiology Review of Systems General: No Chills, No Night Sweats; Fatigue, Malaise; No Appetite HEENT: No Head Aches, No Visual Changes, No Eye Pain, No Ear Pain, No Dysphasia , No Sinus Congestion, No Post Nasal Drip, No Sore Throat Pulmonary: No Dyspnea, No Cough, No Pleuritic Chest Pain Cardiovascular: Chest Pain; No: Palpitations, Orthopnea, Paroxysmal Noc. Dyspnea, Edema, Lt Headedness Gastrointestinal: No: Nausea, Vomiting, Abdominal Pain, Diarrhea, Constipation , Melena, Hematochezia Genitourinary: No Dysuria, No Frequency, No Incontinence, No Hematuria, No Retention Musculoskeletal: No: neck pain, shoulder pain, arm pain, back pain, hand pain, leg pain, foot pain Neurological: No: Weakness, Numbness, Incoordination, Change in speech, Confusion, Seizures Home Medications & Allergies Allergies: Coded Allergies: naproxen (Verified Allergy, Unknown, anaphylaxis, 07/02/18) Home Medication List Reviewed: Yes Exam-Cardiology Vital Signs Vital Signs Date Time Temp Pulse Resp B/P (MAP) Pulse Ox O2 Delivery O2 Flow Rate FiO2 07/05/18 14:30 98.4 69 12 134/88 (103) 95 Room Air Exam General Appearance: Alert, Oriented X3, Cooperative, No Acute Distress HEENT: Atraumatic, PERRLA Respiratory: Clear to Auscultation, Normal Air Movement Cardiovascular: Regular Rate, Normal S1, Normal S2, No Murmurs Abdominal: Normal Bowel Sounds, Soft, No Tenderness, No Hepatosplenomegaly, No Masses Extremities: No Clubbing, No Cyanosis, No Edema, Normal Pulses, No Tenderness/ Swelling Skin: No Rashes, No Breakdown, No Significant Lesion Neuro: Normal Gait, Normal Speech, Strength at 5/5 X4 Ext, Normal Tone, Sensation Intact Psych/Mental Status: Mental Status NL, Mood NL Results Labs Labs Laboratory Tests 07/05/18 14:40: White Blood Count 8.6, Red Blood Count 5.25, Hemoglobin 16.3, Hematocrit 49, Mean Corpuscular Volume 93, Mean Corpuscular Hemoglobin 31, Mean Corpuscular Hemoglobin Concent 34, Red Cell Distribution Width 13.7, Platelet Count 321, Mean Platelet Volume 9.9, Neutrophils (%) (Auto) 72, Lymphocytes (%) (Auto) 18, Monocytes (%) (Auto) 7, Eosinophils (%) (Auto) 2, Basophils (%) (Auto) 0, Neutrophils # (Auto) 6.2, Lymphocytes # (Auto) 1.6, Monocytes # (Auto) 0.6, Eosinophils # (Auto) 0.2, Basophils # (Auto) 0.0, Sodium Level 138, Potassium Level 3.9, Chloride Level 109H, Carbon Dioxide Level 16L, Anion Gap 13, Blood Urea Nitrogen 17, Creatinine 1.23, Estimat Glomerular Filtration Rate 60, BUN/ Creatinine Ratio 14, Glucose Level 126H, Calcium Level 9.1, Corrected Calcium 9.1, Magnesium Level 2.2, Total Bilirubin 0.6, Aspartate Amino Transf (AST/SGOT ) 30, Alanine Aminotransferase (ALT/SGPT) 41, Alkaline Phosphatase 64, Myoglobin 36.4, Troponin I 1.32*H, B-Type Natriuretic Peptide 43.6, Total Protein 7.0, Albumin 4.0, Lipase 95H 07/05/18 15:15: Prothrombin Time 13.6, INR Comment 1.0, Activated Partial Thromboplast Time 27 A/P-Cardiology Admission Diagnosis Chest pain Coronary artery disease Hypertension Hyperlipidemia Admission Status: Observation Assessment/Plan Chest pain nonspecific etiology, atypical in presentation at this time. Continue to monitor, we'll observe him overnight Elevated troponin level, it's probably residual from his recent myocardial infarction, patient has normal myoglobin level. I will continue monitoring overnight and repeat troponin in the morning. Coronary artery disease status post non-ST elevation of cardiac infarction and stenting to the obtuse marginal branch with good results. Continue to monitor. Hypertension, transient hypotension with generalized fatigue and loss of energy. I will give him IV fluid and monitor his blood pressure overnight. Hyperlipidemia. Monitor lipids, restart Lipitor. JASKARAN HOLGUIN MD Jul 05, 2018 16:31
[2018-07-05] MEDS ORDERED: ONDANSETRON 4 MG/2 ML (SDV) Z0FRAN IV PRN (17:45)
[2018-07-05] MEDS ORDERED: morphine INJ 4 MG/ML 1 ML (VIAL/SYRINGE) IV PRN (17:45)
[2018-07-05] MEDS ORDERED: CATHETER FLUSH 10 ML SYR IV PRN (17:45)
[2018-07-05] MEDS: NS IV 1000 ML 1,000 ML IV SCH (18:05)
[2018-07-05] MEDS ORDERED: ATORVASTATIN 80 MG (LIPITOR) TABLET PO SCH (21:00)
[2018-07-05] MEDS: TICAGRELOR 90 MG TABLET (BRILINTA) PO SCH (22:42)
[2018-07-06 00:05] VITALS: BP 128/78
[2018-07-06] MEDS: NS IV 1000 ML 1,000 ML IV SCH (04:03)
[2018-07-06 04:05] VITALS: BP 130/74
[2018-07-06 05:38] LABS: HEMOGLOBIN 15.5 G/DL (13.3-17.7); MEAN PLATELET VOLUME 9.6 FL (7.4-10.4); RED BLOOD COUNT 4.87 10^6/uL (4.35-5.85); WHITE BLOOD COUNT 7.9 10^3/uL (4.3-11.0)
[2018-07-06 06:05] LABS: ALANINE AMINOTRANSFERASE 34 U/L (0-55); ALBUMIN 3.7 GM/DL (3.2-4.5); ALKALINE PHOSPHATASE 59 U/L (40-136); BILIRUBIN,TOTAL 0.9 MG/DL (0.1-1.0); BUN/CREATININE RATIO 14; CALCIUM 8.3 MG/DL (8.5-10.1); CARBON DIOXIDE 19 MMOL/L (21-32); CHLORIDE 111 MMOL/L (98-107); CREATININE SERUM 1.04 MG/DL (0.60-1.30); GFR ESTIMATED > 60; GLUCOSE 95 MG/DL (70-105); POTASSIUM 3.9 MMOL/L (3.6-5.0); SODIUM 140 MMOL/L (135-145); TOTAL PROTEIN 6.1 GM/DL (6.4-8.2)
[2018-07-06 06:06] LABS: CHOLESTEROL 141 MG/DL (< 200); HDL CHOLESTEROL 32 MG/DL (40-60); TRIGLYCERIDES 136 MG/DL (<150); VLDL CHOLESTEROL 27 MG/DL (5-40)
[2018-07-06 08:09] VITALS: BP 134/87
[2018-07-06 08:25] VITALS: BP 134/67
[2018-07-06] MEDS ORDERED: ASPIRIN E.C. 81 MG (ECOTRIN) TAB PO SCH (09:00)
[2018-07-06] MEDS ORDERED: lisINopril 5 MG (PRINIVIL) TABLET PO SCH (09:00)
[2018-07-06] MEDS: TICAGRELOR 90 MG TABLET (BRILINTA) PO SCH (09:50)
[2018-07-06] MEDS ORDERED: CATHETER FLUSH 10 ML SYR IV PRN (10:30)
--- NOTE | 2018-07-06 12:28 | Cardiology Progress Note ---
Subjective Date Seen by Provider: Jul 06, 2018 Time Seen by Provider: 12:25 Review of Systems General: No Chills, No Night Sweats, No Fatigue, No Malaise, No Appetite, No Other HEENT: No Head Aches, No Visual Changes, No Eye Pain, No Ear Pain, No Dysphasia , No Sinus Congestion, No Post Nasal Drip, No Sore Throat, No Other Pulmonary: No Dyspnea, No Cough, No Pleuritic Chest Pain, No Other Cardiovascular: No: Chest Pain, Palpitations, Orthopnea, Paroxysmal Noc. Dyspnea, Edema, Lt Headedness, Other Objective-Cardiology Exam Last Set of Vital Signs Vital Signs 07/06/18 08:25 Temp 96.3 Pulse 57 Resp 16 B/P (MAP) 134/67 (89) Pulse Ox 96 O2 Delivery Room Air Capillary Refill : Less Than 3 SecondsLess Than 3 Seconds I&O Intake and Output 07/06/18 00:00 Intake Total 500 ml Balance 500 ml Intake Oral 500 ml # Voids 2 Daily Weight Change No General: Alert, Oriented X3, Cooperative, No Acute Distress HEENT: Atraumatic, PERRLA Neck: Supple, No JVD Lungs: Clear to Auscultation, Normal Air Movement Heart: Regular Rate, Normal S1, Normal S2, No Murmurs Abdomen: Normal Bowel Sounds, Soft, No Tenderness, No Hepatosplenomegaly, No Masses Extremities: No Clubbing, No Cyanosis, No Edema, Normal Pulses, No Tenderness/ Swelling Skin: No Rashes, No Breakdown, No Significant Lesion Neuro: Normal Gait, Normal Speech, Strength at 5/5 X4 Ext, Normal Tone, Sensation Intact Psych/Mental Status: Mental Status NL, Mood NL Results Lab Laboratory Tests 07/05/18 14:40 07/06/18 05:15 A/P-Cardiology Admission Diagnosis Chest pain Coronary artery disease Hypotension Hyperlipidemia Assessment/Plan Chest pain nonspecific etiology, no further episodes, no ECG changes, discussed the management plan, we'll continue monitoring as an outpatient and follow-up with Dr. Yun Elevated troponin level, Probably residual from his recent heart attack. Had slight bump in his troponin probably due to a hypotensive episode he had. I asked him to walk in the hallway and he was able to walk around without any chest pain or any symptoms. He is feeling well and requesting to go home. I will arrange for follow-up as an outpatient with Dr. Yun Coronary artery disease status post non-ST elevation of cardiac infarction and stenting to the obtuse marginal branch with good results. Continue to monitor. Hypotension, had severe hypotensive episode prior to arriving to the hospital after taking his morning medication. I instructed him to stop his blood pressure medication. Transient bradycardia with a heart rate in the 40s while in the hospital. I will discontinue beta blockers and monitor. Hyperlipidemia, continue on Lipitor and monitor as an outpatient Clinical Quality Measures DVT/VTE Risk/Contraindication: Risk Factor Score Per Nursin RFS Level Per Nursing on Admit: 4+=Very High JASKARAN HOLGUIN MD Jul 06, 2018 12:28
[2018-07-06 12:47] VITALS: BP 134/67
[2018-07-06] MEDS ORDERED: CATHETER FLUSH 10 ML SYR IV SCH (14:00)
== END 2018-07-06 12:24 | disposition home or self-care (01) ==
LOC: EDUNIT# 14:18 → ER 14:19 → UNDOADMOB 16:25 → 4TH 16:25 → UNDODISOB 07-06 12:47
PROVIDERS: ADMIT Internal Medicine Cardiovascular Disease; ATTEND Internal Medicine Cardiovascular Disease
DX: R07.9 Chest pain, unspecified (principal); I25.119 Atherosclerotic heart disease of native coronary artery with unspecified angina pectoris; I95.9 Hypotension, unspecified; R00.1 Bradycardia, unspecified; E78.5 Hyperlipidemia, unspecified; I25.2 Old myocardial infarction; I10 Essential (primary) hypertension; Z79.82 Long term (current) use of aspirin; Z79.899 Other long term (current) drug therapy
CPT/HCPCS: 36415; 71045; 80053; 80061; 83690; 83735; 83874; 83880; 84484; 85025; 85027; 85610; 85730; 93005

== ENCOUNTER → 2019-04-28 | Outpatient (CLI) | payer BC | LOC: CARD 08:51 | PROVIDERS: ATTEND Internal Medicine Cardiovascular Disease | DX: I07.1 Rheumatic tricuspid insufficiency (principal); I37.1 Nonrheumatic pulmonary valve insufficiency; I11.9 Hypertensive heart disease without heart failure; I25.10 Atherosclerotic heart disease of native coronary artery without angina pectoris; E78.2 Mixed hyperlipidemia | CPT/HCPCS: 93306 ==

== ENCOUNTER → 2020-06-28 | Outpatient (CLI) | payer BC ==
[~2020-06-28] MED LIST changes: +ASPI-1238 PO; -ASPI-983 PO; -METO-387 PO; +MTP25TSR PO
== END ==
LOC: LABNPT 08:41
PROVIDERS: ATTEND Internal Medicine
DX: R68.83 Chills (without fever) (principal); R52 Pain, unspecified; R25.2 Cramp and spasm
CPT/HCPCS: 87635

== ENCOUNTER → 2020-06-29 | Outpatient (CLI) | payer BC | LOC: LABNPT 05:20 | PROVIDERS: ATTEND Internal Medicine | DX: R68.83 Chills (without fever) (principal); R52 Pain, unspecified; R10.9 Unspecified abdominal pain; Z20.828 Contact with and (suspected) exposure to other viral communicable diseases | CPT/HCPCS: 87635 ==

== ENCOUNTER 2020-07-03 09:36 | Emergency (ER) | payer BC ==
[~2020-07-03] VITALS: Ht 180.3 cm; Wt 97.7 kg
--- NOTE | 2020-07-03 09:55 | ED Abdominal Pain ---
General Stated Complaint: ABD PAIN Source of Information: Patient Exam Limitations: No Limitations History of Present Illness Date Seen by Provider: Jul 03, 2020 Time Seen by Provider: 09:39 Initial Comments Patient presents to the ER by private conveyance from home with chief complaint of left lower quadrant abdominal pain cramping intermittent worse after feed, improved after diarrhea for the past 9 days. He thought was going away. He had 102 degree fever the first day but nothing since. No nausea. He rates the pain as a 1 out of 10 now. No history of diverticulosis. He had a colonoscopy by Dr. Smalls 2 years ago and was told everything was okay. He has had 2 hernia surgeries but no other abdominal surgeries. No trauma. No known sick contacts. He has had 3 - Covid screening tests in the last week trying to get into see his primary care doctor, Dr. Wilson. He has not been seen or had any work-up done yet. Allergies and Home Medications Allergies Coded Allergies: naproxen (Verified Allergy, Unknown, anaphylaxis, 07/05/18) Home Medications Aspirin 81 Mg Tablet.dr, 81 MG PO DAILY Prescribed by: JUANI DILL on 07/03/18 0843 Atorvastatin Calcium 80 Mg Tablet, 80 MG PO HS Prescribed by: JUANI DILL on 07/03/18 0843 Ticagrelor 90 Mg Tablet, 90 MG PO BID Prescribed by: JUANI DILL on 07/03/18 0843 Patient Home Medication List Home Medication List Reviewed: Yes Review of Systems Review of Systems Constitutional: No chills, No diaphoresis EENTM: No Blurred Vision, No Double Vision Respiratory: Denies Cough, Denies Shortness of Air Cardiovascular: Denies Chest Pain, Denies Lightheadedness Gastrointestinal: See HPI, Abdominal Pain; Denies Constipated; Diarrhea; Denies Nausea Genitourinary: Denies Burning, Denies Discharge Musculoskeletal: No back pain, No joint pain All Other Systems Reviewed Negative Unless Noted: Yes Past Fhzqohh-Zygtfh-Urouug Hx Patient Social History Alcohol Use: Occasionally Uses Alcohol Beverage of Choice: Whiskey Recreational Drug Use: No Smoking Status: Never a Smoker 2nd Hand Smoke Exposure: No Recent Hopitalizations: Yes (Heart stent on 07/02/18) Immunizations Up To Date Tetanus Booster (TDap): Unknown PED Vaccines UTD: No Date of Influenza Vaccine: Jun 02, 2018 Seasonal Allergies Seasonal Allergies: No Past Medical History Surgeries: Yes Abdominal, Orthopedic Respiratory: No Cardiac: Yes Hypertension Neurological: No Reproductive Disorders: No Genitourinary: No Gastrointestinal: No Musculoskeletal: No Endocrine: No HEENT: No Cancer: No Psychosocial: No Integumentary: No Blood Disorders: No Family Medical History No Pertinent Family Hx Physical Exam Vital Signs Vital Signs - First Documented 07/03/20 09:41 Temp 35.0 Pulse 67 Resp 18 B/P (MAP) 201/120 (147) Pulse Ox 98 Capillary Refill : Height/Weight/BMI Height: 5'11.00" Weight: 206lbs. 2.0oz. 93.593040th; 28.5 BMI Method:Stated General Appearance: WD/WN, no apparent distress HEENT: PERRL/EOMI, pharynx normal Neck: full range of motion, normal inspection Respiratory: lungs clear, normal breath sounds, no respiratory distress, no accessory muscle use Cardiovascular: normal peripheral pulses, regular rate, rhythm Gastrointestinal: normal bowel sounds, soft, tenderness (Left lower quadrant without mesenteric signs, Rovsing sign, psoas sign or heeltap tenderness) Extremities: normal range of motion, normal capillary refill Back: normal inspection, no CVA tenderness Neurologic/Psychiatric: alert, normal mood/affect, oriented x 3 Skin: normal color, warm/dry Focused Exam Lactate Level 07/03/20 09:57: Lactic Acid Level 1.02 Lactic Acid Level Laboratory Tests Test 07/03/20 09:57 Lactic Acid Level 1.02 MMOL/L (0.50-2.00) Progress/Results/Core Measures Results/Orders Lab Results Laboratory Tests Test 07/03/20 09:57 07/03/20 10:28 Range/Units White Blood Count 5.2 4.3-11.0 10^3/uL Red Blood Count 5.62 H 4.30-5.52 10^6/uL Hemoglobin 17.4 13.3-17.7 g/dL Hematocrit 53 40-54 % Mean Corpuscular Volume 93 80-99 fL Mean Corpuscular Hemoglobin 31 25-34 pg Mean Corpuscular Hemoglobin Concent 33 32-36 g/dL Red Cell Distribution Width 12.8 10.0-14.5 % Platelet Count 349 130-400 10^3/uL Mean Platelet Volume 9.1 9.0-12.2 fL Immature Granulocyte % (Auto) 1 % Neutrophils (%) (Auto) 48 42-75 % Lymphocytes (%) (Auto) 32 12-44 % Monocytes (%) (Auto) 12 0-12 % Eosinophils (%) (Auto) 7 0-10 % Basophils (%) (Auto) 1 0-10 % Neutrophils # (Auto) 2.5 1.8-7.8 10^3/uL Lymphocytes # (Auto) 1.7 1.0-4.0 10^3/uL Monocytes # (Auto) 0.6 0.0-1.0 10^3/uL Eosinophils # (Auto) 0.4 H 0.0-0.3 10^3/uL Basophils # (Auto) 0.0 0.0-0.1 10^3/uL Immature Granulocyte # (Auto) 0.0 0.0-0.1 10^3/uL Sodium Level 138 135-145 MMOL/L Potassium Level 4.2 3.6-5.0 MMOL/L Chloride Level 108 H 98-107 MMOL/L Carbon Dioxide Level 21 21-32 MMOL/L Anion Gap 9 5-14 MMOL/L Blood Urea Nitrogen 20 H 7-18 MG/DL Creatinine 1.10 0.60-1.30 MG/DL Estimat Glomerular Filtration Rate > 60 BUN/Creatinine Ratio 18 Glucose Level 112 H 70-105 MG/DL Lactic Acid Level 1.02 0.50-2.00 MMOL/L Calcium Level 9.1 8.5-10.1 MG/DL Corrected Calcium 8.9 8.5-10.1 MG/DL Magnesium Level 2.1 1.6-2.4 MG/DL Total Bilirubin 0.5 0.1-1.0 MG/DL Aspartate Amino Transf (AST/SGOT) 29 5-34 U/L Alanine Aminotransferase (ALT/SGPT) 50 0-55 U/L Alkaline Phosphatase 99 40-136 U/L C-Reactive Protein High Sensitivity 0.76 H 0.00-0.50 MG/DL Total Protein 7.2 6.4-8.2 GM/DL Albumin 4.2 3.2-4.5 GM/DL Lipase 56 8-78 U/L Urine Color YELLOW Urine Clarity CLEAR Urine pH 5.5 5-9 Urine Specific Douglas 1.020 1.016-1.022 Urine Protein NEGATIVE NEGATIVE Urine Glucose (UA) NEGATIVE NEGATIVE Urine Ketones NEGATIVE NEGATIVE Urine Nitrite NEGATIVE NEGATIVE Urine Bilirubin NEGATIVE NEGATIVE Urine Urobilinogen 0.2 < = 1.0 MG/DL Urine Leukocyte Esterase NEGATIVE NEGATIVE Urine RBC (Auto) NEGATIVE NEGATIVE Urine RBC NONE /HPF Urine WBC NONE /HPF Urine Squamous Epithelial Cells NONE /HPF Urine Crystals NONE /LPF Urine Bacteria NEGATIVE /HPF Urine Casts NONE /LPF Urine Mucus NEGATIVE /LPF Urine Culture Indicated NO My Orders Orders - BECK VELEZ Cbc With Automated Diff (07/03/20 09:50) Comprehensive Metabolic Panel (07/03/20 09:50) Hs C Reactive Protein (07/03/20 09:50) Lactic Acid Analyzer (07/03/20 09:50) Lipase (07/03/20 09:50) Ua Culture If Indicated (07/03/20 09:50) Ct Abdomen/Pelvis W (07/03/20 09:50) Ed Iv/Invasive Line Start (07/03/20 09:50) Lactated Ringers (Lr 1000 Ml Iv Solution (07/03/20 10:00) Magnesium (07/03/20 09:50) Ciprofloxacin Iv 400mg/200ml (Cipro Iv S (07/03/20 10:45) Metronidazole 500mg/100ml Ivpb (Flagyl 5 (07/03/20 10:45) Iohexol Injection (Omnipaque 350 Mg/Ml 1 (07/03/20 10:45) Received Contrast (Hold Metformin- Contr (07/03/20 10:45) Ns (Ivpb) (Sodium Chloride 0.9% Ivpb Bag (07/03/20 10:45) Medications Given in ED Current Medications Medications Dose Ordered Sig/Shari Route Start Time Stop Time Status Last Admin Dose Admin Ciprofloxacin/ Dextrose 200 ml @ 200 mls/hr ONCE ONCE IV 07/03/20 10:45 07/03/20 11:44 DC 07/03/20 10:45 200 MLS/HR Iohexol 100 ml ONCE ONCE IV 07/03/20 10:45 07/03/20 10:46 DC 07/03/20 11:35 100 ML Lactated Ringer's 1,000 ml @ 0 mls/hr Q0M ONCE IV 07/03/20 10:00 07/03/20 10:01 DC 07/03/20 10:07 1,000 MLS/HR Metronidazole 100 ml @ 100 mls/hr ONCE ONCE IV 07/03/20 10:45 07/03/20 11:44 DC 07/03/20 11:02 100 MLS/HR Sodium Chloride 100 ml ONCE ONCE IV 07/03/20 10:45 07/03/20 10:46 DC 07/03/20 11:35 80 ML Vital Signs/I&O 07/03/20 09:41 Temp 35.0 Pulse 67 Resp 18 B/P (MAP) 201/120 (147) Pulse Ox 98 Progress Progress Note : Time: 09:58 Progress Note Aseptic vital signs. He has a significantly elevated blood pressure but says he has not taken his blood pressure medicine yet this morning. We discussed labs and imaging with him and he does not want a thing for pain or nausea at this time. Plan to give him a liter of fluids and observe his blood pressure. If it does not come down we will give him some hydralazine. Differential includes diverticulitis, colitis, ischemic colitis, etc. Diagnostic Imaging Diagonstic Imaging: CT Plain Films/CT/US/NM/MRI: abdomen, pelvis Comments NAME: KIM LOUISE [facility] REC#: [id number] PT STATUS: REG ER : 1955 PHYSICIAN: BECK VELEZ MD ADMIT DATE: 07/03/20/ER Draft Date of Exam:07/03/20 CT ABDOMEN/PELVIS W PROCEDURE: CT abdomen and pelvis with contrast. TECHNIQUE: Multiple contiguous axial images were obtained through the abdomen and pelvis after administration of intravenous contrast. Auto Exposure Controls were utilized during the CT exam to meet ALARA standards for radiation dose reduction. All CT scans use one or more of the following dose optimizing techniques: automated exposure control, MA and/or KvP adjustment based on patient size and exam type or iterative reconstruction. INDICATION: 2 weeks history of abdominal pain, previous hernias repaired. I have no comparison. FINDINGS: There is an appendicolith within the appendix. The appendix lumen contains air proximal and distal to the small stone and the appendix is nondilated its wall non-thickened. There is no periappendiceal edema. Patient has extensive sigmoid diverticulosis without secondary features of active or acute diverticulitis. There is a small retrocardiac hiatal hernia. Liver, gallbladder, spleen, adrenals and pancreas unremarkable. Probable cyst within the right renal lower pole. No hydroureteronephrosis. No perinephric or periureteric edema. Prostate, seminal vesicles and urinary bladder unremarkable. No acute abdominal wall pathology. IMPRESSION: Severe, but noninflamed sigmoid diverticulosis. The retrocardiac hiatal hernia is present with unobstructed urinary tracts. Stone containing but nonacute appendix. No acute appearing abdominal pelvic abnormalities. Dictated on workstation # [id number] Dict: 07/03/20 1147 Trans: 07/03/20 1205 [id number] Interpreted by: LORETTA GÓMEZ Electronically signed by: Reviewed: Reviewed by Me Departure Impression Primary Impression: Diverticulitis of intestine Qualified Codes: K57.32 - Diverticulitis of large intestine without perforation or abscess without bleeding Disposition: HOME, SELF-CARE Condition: Stable Departure-Patient Inst. Decision time for Depature: 12:10 Referrals: KENJI SMALLS JOHN D MD (PCP/Family) Primary Care Physician Patient Instructions: Diverticulitis (DC) Add. Discharge Instructions: Drink plenty of fluids. Tylenol 650 mg every 8 hours as necessary for pain. Heating pads. Hydrocodone 1 tablet every 6 hours for severe breakthrough pain. Eat a high-fiber diet and stay regular. Ciprofloxacin 1 tablet twice a day for a week. Flagyl 1 tablet 3 times a day for a week. Probiotics 1 capsule twice a day for 2 weeks. Ondansetron 1 tablet every 6 hours as necessary for nausea. If your symptoms cease just keep taking the antibiotics for 2 more days and then you may stop them. If you are having a hard time keeping up with your fluid intake you can use Imodium 2 tablets followed by 1 tablet every 4 hours afterwards as necessary for watery stools. Return to the ER if you are having intractable pain, fever or other worrisome symptoms. Take your blood pressure medicines when you get home. Plan to follow-up in 1 to 2 weeks with your primary care doctor or general surgeon as necessary. Scripts Metronidazole (Flagyl) 500 Mg Tablet 500 MG PO TID for 7 Days, #21 TAB 0 Refills Prov: BECK VELEZ 07/03/20 Ciprofloxacin HCl (Ciprofloxacin HCl) 500 Mg Tablet 500 MG PO BID for 7 Days, #14 TAB 0 Refills Prov: BECK VELEZ 07/03/20 Hydrocodone/Acetaminophen (Hydrocodone-Acetamin 5-325 mg) 1 Each Tablet 1 EACH PO Q6H PRN for PAIN-BREAKTHROUGH, #10 TAB 0 Refills Prov: BECK VELEZ 07/03/20 Ondansetron (Ondansetron Odt) 4 Mg Tab.rapdis 4 MG PO Q6H PRN for NAUSEA/VOMITING, #8 TAB 0 Refills Prov: BECK VELEZ 07/03/20 BECK VELEZ Jul 03, 2020 09:55
[2020-07-03] MEDS ORDERED: LACTATED RINGERS 1,000 ML IV ONE (10:00)
--- NOTE | 2020-07-03 10:02 | NUR ---
CALLED AND UPDATE GIVEN WILL GO HOME AND WAIT.
[2020-07-03 10:06] LABS: BASOPHILS % (AUTO) 1 % (0-10); EOSINOPHILS # (AUTO) 0.4 10^3/uL (0.0-0.3); EOSINOPHILS % (AUTO) 7 % (0-10); HEMATOCRIT 53 % (40-54); HEMOGLOBIN 17.4 g/dL (13.3-17.7); LYMPHOCYTES # (AUTO) 1.7 10^3/uL (1.0-4.0); LYMPHOCYTES % (AUTO) 32 % (12-44); MEAN CORPUSCULAR HEMOGLOBIN 31 pg (25-34); MEAN CORPUSCULAR HGB CONC 33 g/dL (32-36); MEAN CORPUSCULAR VOLUME 93 fL (80-99); MEAN PLATELET VOLUME 9.1 fL (9.0-12.2); MONOCYTES # (AUTO) 0.6 10^3/uL (0.0-1.0); MONOCYTES % (AUTO) 12 % (0-12); NEUTROPHILS # (AUTO) 2.5 10^3/uL (1.8-7.8); NEUTROPHILS % (AUTO) 48 % (42-75); PLATELET COUNT 349 10^3/uL (130-400); WHITE BLOOD COUNT 5.2 10^3/uL (4.3-11.0)
[2020-07-03 10:18] LABS: ALBUMIN 4.2 GM/DL (3.2-4.5); CHLORIDE 108 MMOL/L (98-107); POTASSIUM 4.2 MMOL/L (3.6-5.0); SODIUM 138 MMOL/L (135-145)
[2020-07-03 10:19] LABS: CALCIUM 9.1 MG/DL (8.5-10.1)
[2020-07-03 10:20] LABS: GLUCOSE 112 MG/DL (70-105); TOTAL PROTEIN 7.2 GM/DL (6.4-8.2)
[2020-07-03 10:21] LABS: CARBON DIOXIDE 21 MMOL/L (21-32)
[2020-07-03 10:22] LABS: BILIRUBIN,TOTAL 0.5 MG/DL (0.1-1.0)
[2020-07-03 10:23] LABS: ALKALINE PHOSPHATASE 99 U/L (40-136)
[2020-07-03 10:24] LABS: GFR ESTIMATED > 60
[2020-07-03 10:25] LABS: BUN/CREATININE RATIO 18
[2020-07-03 10:26] LABS: MAGNESIUM 2.1 MG/DL (1.6-2.4)
[2020-07-03 10:27] LABS: ALANINE AMINOTRANSFERASE 50 U/L (0-55); LIPASE 56 U/L (8-78)
[2020-07-03 10:35] LABS: BILIRUBIN,URINE NEGATIVE (NEGATIVE); CLARITY,URINE CLEAR; COLOR,URINE YELLOW; GLUCOSE, URINE (UA) NEGATIVE (NEGATIVE); KETONES,URINE NEGATIVE (NEGATIVE); LEUKOCYTE ESTERASE ,URINE NEGATIVE (NEGATIVE); NITRITE,URINE NEGATIVE (NEGATIVE); PH,URINE 5.5 (5-9); PROTEIN,URINE NEGATIVE (NEGATIVE)
[2020-07-03 10:44] LABS: BACTERIA,URINE NEGATIVE /HPF
[2020-07-03] MEDS ORDERED: NS 100 ML (IVPB) BAG IV ONE (10:45)
[2020-07-03] MEDS ORDERED: CIPROFLOXACIN IV 400MG/200ML 200 ML IV ONE (10:45)
[2020-07-03] MEDS ORDERED: IOHEXOL 350 MG/ML 100 ML (OMNIPAQUE 350) VIAL IV ONE (10:45)
[2020-07-03] MEDS ORDERED: metroNIDAZOLE 500MG/100ML IVPB 100 ML IV ONE (10:45)
[2020-07-03] MEDS ORDERED: HOLD METFORMIN - RECEIVED CONTRAST 20 ML VIAL IV SCH (10:45)
--- NOTE | 2020-07-03 12:06 | Diagnostic Imaging Report ---
PROCEDURE: CT abdomen and pelvis with contrast. TECHNIQUE: Multiple contiguous axial images were obtained through the abdomen and pelvis after administration of intravenous contrast. Auto Exposure Controls were utilized during the CT exam to meet ALARA standards for radiation dose reduction. All CT scans use one or more of the following dose optimizing techniques: automated exposure control, MA and/or KvP adjustment based on patient size and exam type or iterative reconstruction. INDICATION: 2 weeks history of abdominal pain, previous hernias repaired. I have no comparison. FINDINGS: There is an appendicolith within the appendix. The appendix lumen contains air proximal and distal to the small stone and the appendix is nondilated its wall non-thickened. There is no periappendiceal edema. Patient has extensive sigmoid diverticulosis without secondary features of active or acute diverticulitis. There is a small retrocardiac hiatal hernia. Liver, gallbladder, spleen, adrenals and pancreas unremarkable. Probable cyst within the right renal lower pole. No hydroureteronephrosis. No perinephric or periureteric edema. Prostate, seminal vesicles and urinary bladder unremarkable. No acute abdominal wall pathology. IMPRESSION: Severe, but noninflamed sigmoid diverticulosis. The retrocardiac hiatal hernia is present with unobstructed urinary tracts. Stone containing but nonacute appendix. No acute appearing abdominal pelvic abnormalities. Dictated by: Dictated on workstation # [id number]
--- NOTE | 2020-07-03 12:13 | NUR ---
TO ROOM TO DISCUSS LAB AND CT WITH PATIENT.
--- NOTE | 2020-07-03 12:19 | NUR ---
UPDATE TO . WILL COME GET HIM
[2020-07-03] MEDS ORDERED: CIPR500T4 PO (12:21)
[2020-07-03] MEDS ORDERED: METR500T PO (12:21)
[2020-07-03] MEDS ORDERED: ONDA4TAB11 PO (12:21)
[2020-07-03] MEDS ORDERED: ACHD5005 PO (12:21)
[2020-07-03 12:29] VITALS: BP 173/107
== END 2020-07-03 12:29 | disposition home or self-care (01) ==
LOC: EDUNIT# 09:36 → ER 09:37
DX: K57.32 Diverticulitis of large intestine without perforation or abscess without bleeding (principal); Z88.8 Allergy status to other drugs, medicaments and biological substances; Z79.82 Long term (current) use of aspirin
CPT/HCPCS: 36415; 74177; 80053; 81000; 83605; 83690; 83735; 85025; 86141

== ENCOUNTER → 2020-08-16 | Outpatient (CLI) | payer BC, OTHER ==
[~2020-08-16] MED LIST changes: +ACHD5005 PO; +CIPR500T4 PO; +METR500T PO; +ONDA4TAB11 PO
[2020-08-16 10:35] LABS: BASOPHILS % (AUTO) 1 % (0-10); EOSINOPHILS # (AUTO) 0.3 10^3/uL (0.0-0.3); EOSINOPHILS % (AUTO) 6 % (0-10); HEMATOCRIT 55 % (40-54); HEMOGLOBIN 17.9 g/dL (13.3-17.7); LYMPHOCYTES # (AUTO) 1.3 10^3/uL (1.0-4.0); LYMPHOCYTES % (AUTO) 28 % (12-44); MEAN CORPUSCULAR HEMOGLOBIN 31 pg (25-34); MEAN CORPUSCULAR HGB CONC 32 g/dL (32-36); MEAN CORPUSCULAR VOLUME 94 fL (80-99); MEAN PLATELET VOLUME 9.8 fL (9.0-12.2); MONOCYTES # (AUTO) 0.6 10^3/uL (0.0-1.0); MONOCYTES % (AUTO) 13 % (0-12); NEUTROPHILS # (AUTO) 2.5 10^3/uL (1.8-7.8); NEUTROPHILS % (AUTO) 52 % (42-75); PLATELET COUNT 343 10^3/uL (130-400); WHITE BLOOD COUNT 4.8 10^3/uL (4.3-11.0)
--- NOTE | 2020-08-16 10:36 | Diagnostic Imaging Report ---
INDICATION: Left lower quadrant abdominal pain. COMPARISON: None FINDINGS: Single supine radiographic view of the abdomen was obtained and demonstrates nondistended loops of small bowel. There is no large collection of free intraperitoneal air. No unexpected extraosseous calcifications or radiopaque foreign bodies are seen. Osseous structures show age-related degenerative changes. IMPRESSION: 1. Nonobstructed small bowel gas pattern. Dictated by: Dictated on workstation # [id number]
[2020-08-16 10:44] LABS: ALBUMIN 4.2 GM/DL (3.2-4.5); CALCIUM 9.4 MG/DL (8.5-10.1); CREATININE SERUM 1.36 MG/DL (0.60-1.30); POTASSIUM 4.4 MMOL/L (3.6-5.0); TOTAL PROTEIN 7.3 GM/DL (6.4-8.2)
== END ==
LOC: RAD 09:49
PROVIDERS: ATTEND Surgery
DX: R10.32 Left lower quadrant pain (principal)
CPT/HCPCS: 36415; 74018; 80053; 85025

== ENCOUNTER → 2021-11-16 | Outpatient (CLI) | payer OTHER ==
[~2021-11-16] MED LIST changes: -CIPR500T4 PO; +CIPR500T5 PO; -LISI-556 PO; +LISI5TAB20 PO
[2021-11-16 08:31] LABS: ABSOLUTE RETIC # 101 10e9/uL (24-90); BASOPHILS % (AUTO) 1 % (0-10); EOSINOPHILS # (AUTO) 0.3 10^3/uL (0.0-0.3); EOSINOPHILS % (AUTO) 6 % (0-10); HEMATOCRIT 51 % (40-54); HEMOGLOBIN 17.1 g/dL (13.3-17.7); LYMPHOCYTES # (AUTO) 1.5 10^3/uL (1.0-4.0); LYMPHOCYTES % (AUTO) 34 % (12-44); MEAN CORPUSCULAR HEMOGLOBIN 31 pg (25-34); MEAN CORPUSCULAR HGB CONC 34 g/dL (32-36); MEAN CORPUSCULAR VOLUME 91 fL (80-99); MEAN PLATELET VOLUME 9.2 fL (9.0-12.2); MONOCYTES # (AUTO) 0.6 10^3/uL (0.0-1.0); MONOCYTES % (AUTO) 13 % (0-12); NEUTROPHILS % (AUTO) 46 % (42-75); PLATELET COUNT 299 10^3/uL (130-400); RETICULOCYTE % 1.82 % (0.50-2.40); WHITE BLOOD COUNT 4.3 10^3/uL (4.3-11.0)
[2021-11-16 09:24] LABS: BAND NEUTROPHILS 1 %; EOSINOPHILS % (MANUAL) 7 %; LYMPHOCYTES % (MANUAL) 35 %; MONOCYTES % (MANUAL) 10 %; NEUTROPHILS % (MANUAL) 46 %
[2021-11-16 09:25] LABS: MYELOCYTES % 1 %; PLATELET CLUMPS RARE; PLATELET ESTIMATE ADEQUATE; RBC MORPH NORMAL
== END ==
LOC: LAB 08:05
PROVIDERS: ATTEND Nurse Practitioner Family
DX: Z01.89 Encounter for other specified special examinations (principal)
CPT/HCPCS: 36415; 85007; 85027; 85045; 85055

== ENCOUNTER 2022-04-15 10:49 | Emergency (ER) | payer OTHER ==
[~2022-04-15] VITALS: Ht 180.3 cm; Wt 99.8 kg
--- NOTE | 2022-04-15 11:12 | ED Chest Pain ---
General Chief Complaint: Chest Pain Stated Complaint: CHEST PAIN Source: patient, family Exam Limitations: no limitations History of Present Illness Date Seen by Provider: Apr 15, 2022 Time Seen by Provider: 10:55 Initial Comments Patient is a 66-year-old male history of hypertension, hypercholesterolemia who presents to the emergency department with a chief complaint of epigastric discomfort/low chest discomfort. Intermittently over the last 2 to 3 days. Diamond marin denies any big heavy meals or changes in diet. He does occasionally have heartburn. He states that he has been drinking milk to try and alleviate the symptoms. He has taken Tums a couple of times. 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 He is concerned he may have a hiatal hernia. When he woke up with the discomfort this morning he became concerned about cardiac issues. He does exercise almost on a daily basis on his treadmill. He was on his stationary bicycle yesterday or the day before for about 5 minutes without any intensification of symptoms. When he has the discomfort he denies nausea, shortness of breath or diaphoresis. No radiation of the pain. Currently not having any significant amount of discomfort. He has never had a stress test. He does not smoke. He does drink alcohol a couple of times a week. No prior abdominal surgeries. No black or bloody stools recently. All other review of systems reviewed and negative except as stated. [id number] Upon review of the medical record the patient had a NSTEMI 4 years ago and received a drug eluting stent to the OM1. Timing/Duration: 2-3 days Severity/Quality: moderate, ingestion Location: epigastric Radiation: no radiation Activities at Onset: none Prior CP/Workup: no prior chest pain, no prior cardiac workup ASA po DIRECTOR OF SURGERY: Yes (baby) NTG SL DIRECTOR OF SURGERY: No Allergies and Home Medications Allergies Coded Allergies: naproxen (Verified Allergy, Unknown, anaphylaxis, 07/05/18) Patient Home Medication List Home Medication List Reviewed: Yes Aspirin (Aspirin EC) 81 Mg Tablet.dr 81 MG PO DAILY Prescribed by: JUANI DILL on 07/03/18 0843 Atorvastatin Calcium (Atorvastatin Calcium) 80 Mg Tablet, 80 MG PO HS Prescribed by: JUANI DILL on 07/03/18 0843 Ciprofloxacin HCl (Ciprofloxacin HCl) 500 Mg Tablet, 500 MG PO BID Prescribed by: BECK VELEZ on 07/03/20 1221 Hydrocodone/Acetaminophen (Hydrocodone-Acetamin 5-325 mg) 1 Each Tablet, 1 EACH PO Q6H PRN for PAIN-BREAKTHROUGH Prescribed by: BECK VELEZ on 07/03/20 1222 Metronidazole (Flagyl) 500 Mg Tablet, 500 MG PO TID Prescribed by: BECK VELEZ on 07/03/20 1221 Ondansetron (Ondansetron Odt) 4 Mg Tab.rapdis, 4 MG PO Q6H PRN for NAUSEA/VOMITING Prescribed by: BECK VELEZ on 07/03/20 1221 Ticagrelor (Brilinta) 90 Mg Tablet, 90 MG PO BID Prescribed by: JUANI DILL on 07/03/18 0843 Review of Systems Review of Systems Constitutional: see HPI EENTM: No Symptoms Reported Cardiovascular: No Symptoms Reported Gastrointestinal: Abdominal Pain (epigastric) Genitourinary: No Symptoms Reported Musculoskeletal: no symptoms reported Skin: no symptoms reported Psychiatric/Neurological: No Symptoms Reported All Other Systems Reviewed Negative Unless Noted: Yes Past Phnttts-Sqtgeg-Pjyftd Hx Patient Social History Tobacco Use?: No Smoking Status: Never a Smoker Smokeless Tobacco Frequency: Never a User Use of E-Cig and/or Vaping [place]: Never a User Substance use?: No Alcohol Use?: Yes Alcohol Frequency: Once in a while Pt feels they are or have been: No Immunizations Up To Date Tetanus Booster (TDap): Unknown PED Vaccines UTD: No Seasonal Allergies Seasonal Allergies: No Past Medical History Surgeries: Yes Abdominal, Orthopedic Respiratory: No Cardiac: Yes Hypertension Neurological: No Reproductive Disorders: No Genitourinary: No Gastrointestinal: No Musculoskeletal: No Endocrine: No HEENT: No Cancer: No Psychosocial: No Integumentary: No Blood Disorders: No Family Medical History No Pertinent Family Hx Physical Exam Vital Signs Vital Signs - First Documented 04/15/22 10:49 Temp 36.3 Pulse 78 Resp 17 B/P (MAP) 184/117 (139) Pulse Ox 95 O2 Delivery Room Air Capillary Refill : Height, Weight, BMI Height: 5'11.00" Weight: 206lbs. 2.0oz. 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 Norm as Tested Skin: Normal Color, Warm/Dry Progress/Results/Core Measures Results/Orders Lab Results Laboratory Tests Test 04/15/22 10:54 Range/Units White Blood Count 4.9 4.3-11.0 10^3/uL Red Blood Count 5.79 H 4.30-5.52 10^6/uL Hemoglobin 17.7 13.3-17.7 g/dL Hematocrit 53 40-54 % Mean Corpuscular Volume 91 80-99 fL Mean Corpuscular Hemoglobin 31 25-34 pg Mean Corpuscular Hemoglobin Concent 34 32-36 g/dL Red Cell Distribution Width 14.1 10.0-14.5 % Platelet Count 288 130-400 10^3/uL Mean Platelet Volume 9.5 9.0-12.2 fL Immature Granulocyte % (Auto) 1 % Neutrophils (%) (Auto) 52 42-75 % Lymphocytes (%) (Auto) 29 12-44 % Monocytes (%) (Auto) 12 0-12 % Eosinophils (%) (Auto) 5 0-10 % Basophils (%) (Auto) 1 0-10 % Neutrophils # (Auto) 2.6 1.8-7.8 10^3/uL Lymphocytes # (Auto) 1.5 1.0-4.0 10^3/uL Monocytes # (Auto) 0.6 0.0-1.0 10^3/uL Eosinophils # (Auto) 0.3 0.0-0.3 10^3/uL Basophils # (Auto) 0.0 0.0-0.1 10^3/uL Immature Granulocyte # (Auto) 0.0 0.0-0.1 10^3/uL Prothrombin Time 12.9 12.2-14.7 SEC INR Comment 0.9 0.8-1.4 Activated Partial Thromboplast Time 28 24-35 SEC Sodium Level 140 135-145 MMOL/L Potassium Level 3.7 3.6-5.0 MMOL/L Chloride Level 107 98-107 MMOL/L Carbon Dioxide Level 23 21-32 MMOL/L Anion Gap 10 5-14 MMOL/L Blood Urea Nitrogen 14 7-18 MG/DL Creatinine 1.23 0.60-1.30 MG/DL Estimat Glomerular Filtration Rate 66 BUN/Creatinine Ratio 11 Glucose Level 134 H 70-105 MG/DL Calcium Level 9.6 8.5-10.1 MG/DL Corrected Calcium 9.7 8.5-10.1 MG/DL Magnesium Level 2.0 1.6-2.4 MG/DL Total Bilirubin 0.9 0.1-1.0 MG/DL Aspartate Amino Transf (AST/SGOT) 29 5-34 U/L Alanine Aminotransferase (ALT/SGPT) 41 0-55 U/L Alkaline Phosphatase 69 40-136 U/L Myoglobin 119.6 H 10.0-92.0 NG/ML Troponin I < 0.028 <0.028 NG/ML Total Protein 7.1 6.4-8.2 GM/DL Albumin 3.9 3.2-4.5 GM/DL My Orders Orders - ARIAS BABCOCK MD Ekg Tracing (04/15/22 10:51) Cbc With Automated Diff (04/15/22 11:03) Magnesium (04/15/22 11:03) Chest 1 View, Ap/Pa Only (04/15/22 11:03) Ekg Tracing (04/15/22 11:03) Comprehensive Metabolic Panel (04/15/22 11:03) Myoglobin Serum (04/15/22 11:03) Protime With Inr (04/15/22 11:03) Partial Thromboplastin Time (04/15/22 11:03) O2 (04/15/22 11:03) Monitor-Rhythm Ecg Trace Only (04/15/22 11:03) Lipid Panel (04/16/22 06:00) Ed Iv/Invasive Line Start (04/15/22 11:03) Troponin I Froy (04/15/22 11:03) Aspirin Chewable Tablet (Baby Aspirin Ch (04/15/22 11:15) Antacid Suspension (Mylanta Suspension (04/15/22 11:15) Sucralfate Tablet (Carafate Tablet) (04/15/22 11:15) Lidocaine 2% Viscous 15 Ml (Xylocaine Vi (04/15/22 11:15) Medications Given in ED Current Medications Medications Dose Ordered Sig/Shari Route Start Time Stop Time Status Last Admin Dose Admin Al Hydrox/Mg Hydrox/Simethicone 30 ml ONCE ONCE PO 04/15/22 11:15 04/15/22 11:16 DC 04/15/22 11:19 30 ML Aspirin 324 mg ONCE ONCE PO 04/15/22 11:15 04/15/22 11:16 DC 04/15/22 11:19 324 MG Lidocaine HCl 5 ml ONCE ONCE PO 04/15/22 11:15 04/15/22 11:16 DC 04/15/22 11:19 5 ML Sucralfate 1 gm ONCE ONCE PO 04/15/22 11:15 04/15/22 11:16 DC 04/15/22 11:19 1 GM Vital Signs/I&O 04/15/22 04/15/22 10:49 10:49 Temp 36.3 Pulse 78 Resp 17 B/P (MAP) 184/117 (139) Pulse Ox 95 O2 Delivery Room Air Room Air Progress Progress Note : Time: 11:59 Progress Note Patient is completely asymptomatic after GI cocktail. His BP is down a little although diastolic still about 113. He states he did take his BP medication this morning. HIs symptoms sound atypical of anginal pain. He is still exercising without symptoms at home. No concern for dissection, pneumonia, PE, ACS. Possibly he has a component of esophagitis vs ulcer/ Hiatal hernia. I did recommend a daily PPI and followup with BOTH Marialuisa and Sara (who they are friends with) for an EGD. They are comfortable with the plan of care. all questions are sought and answered. Initial ECG Impression Date: Apr 15, 2022 Initial ECG Impression Time: 10:44 Initial ECG Rate: 76 Initial ECG Rhythm: Normal Sinus Initial ECG Intervals NM interval 190, QRS 118, QTc [address] segment elevation or depression is appreciated. Poor R wave progression over V1, V2 and V3. No ectopy. Nonspecific ST-T wave changes inferiorly Diagnostic Imaging Diagonstic Imaging: Xray Plain Films/CT/US/NM/MRI: chest Comments [facility] [place], [place] NAME: KIM LOUISE MED REC#: [id number] PT STATUS: REG ER : 1955 PHYSICIAN: ARIAS BABCOCK MD ADMIT DATE: 04/15/22/ER Signed Date of Exam:04/15/22 CHEST 1 VIEW, AP/PA ONLY INDICATION: Chest pain. COMPARISON: July 05. FINDINGS: The lung volumes are slightly diminished. The visualized portions of the lungs demonstrate no findings of airspace consolidation. There is no large effusion. There is no pneumothorax. There is mild enlargement of the cardiac silhouette and pulmonary vascularity appears appropriate. IMPRESSION: 1. Mildly diminished lung volumes without findings to suggest pneumonia, an effusion or edema. Dictated by: Dictated on workstation # [id number] Dict: 04/15/22 1121 Trans: 04/15/22 1130 [facility] [id number] Interpreted by: BI KIM MD Electronically signed by: BI KIM MD 04/15/22 1130 Departure Impression Primary Impression: Epigastric pain Additional Impression: History of coronary artery disease Disposition: HOME, SELF-CARE Condition: Improved Departure-Patient Inst. Decision time for Depature: 12:02 Referrals: KENJI SMALLS BASHAR J MD TAYLOR, JOHN D MD (PCP/Family) Primary Care Physician Patient Instructions: Chest Pain That Is Not Caused by the Heart (DC) Add. Discharge Instructions: Take the Cimetidine daily (at night). If the discomfort returns, especially with exertion and you have shortness of breath, nausea or changing location of the pain please come back to the Emergency Department for re-evaluation. Please follow up with Dr Smalls for a visit to evaluate for EGD (scope of the esophagus and stomach) for esphagitis (inflammation of the espohagus) or ulcers. You need to talk to Dr Elam about the need for a stress test as well. Copy Copies To 1: JASKARAN ELAM MD Copies To 2: KENJI MSALLS DO; ROSA DE LUNA MD, KATHRYN M MD Apr 15, 2022 11:12
[2022-04-15 11:14] LABS: BASOPHILS % (AUTO) 1 % (0-10); EOSINOPHILS # (AUTO) 0.3 10^3/uL (0.0-0.3); EOSINOPHILS % (AUTO) 5 % (0-10); HEMATOCRIT 53 % (40-54); HEMOGLOBIN 17.7 g/dL (13.3-17.7); LYMPHOCYTES # (AUTO) 1.5 10^3/uL (1.0-4.0); LYMPHOCYTES % (AUTO) 29 % (12-44); MEAN CORPUSCULAR HEMOGLOBIN 31 pg (25-34); MEAN CORPUSCULAR HGB CONC 34 g/dL (32-36); MEAN CORPUSCULAR VOLUME 91 fL (80-99); MEAN PLATELET VOLUME 9.5 fL (9.0-12.2); MONOCYTES # (AUTO) 0.6 10^3/uL (0.0-1.0); MONOCYTES % (AUTO) 12 % (0-12); NEUTROPHILS # (AUTO) 2.6 10^3/uL (1.8-7.8); NEUTROPHILS % (AUTO) 52 % (42-75); PLATELET COUNT 288 10^3/uL (130-400); WHITE BLOOD COUNT 4.9 10^3/uL (4.3-11.0)
[2022-04-15] MEDS ORDERED: ASPIRIN 81 MG CHEW (CHILDREN'S ASA) PO ONE (11:15)
[2022-04-15] MEDS ORDERED: LIDOCAINE 2% VISCOUS 15 ML UDC PO ONE (11:15)
[2022-04-15] MEDS ORDERED: SUCRALFATE 1 GM (CARAFATE) TAB PO ONE (11:15)
[2022-04-15] MEDS ORDERED: ANTACID SUSP 30 ML UDC (MYLANTA) PO ONE (11:15)
[2022-04-15 11:18] LABS: ALBUMIN 3.9 GM/DL (3.2-4.5)
[2022-04-15 11:19] LABS: POTASSIUM 3.7 MMOL/L (3.6-5.0)
[2022-04-15 11:20] LABS: CALCIUM 9.6 MG/DL (8.5-10.1)
[2022-04-15 11:21] LABS: INR 0.9 (0.8-1.4); PROTHROMBIN TIME PATIENT 12.9 SEC (12.2-14.7); TOTAL PROTEIN 7.1 GM/DL (6.4-8.2)
[2022-04-15 11:23] LABS: BILIRUBIN,TOTAL 0.9 MG/DL (0.1-1.0)
--- NOTE | 2022-04-15 11:24 | Diagnostic Imaging Report ---
INDICATION: Chest pain. COMPARISON: July 05. FINDINGS: The lung volumes are slightly diminished. The visualized portions of the lungs demonstrate no findings of airspace consolidation. There is no large effusion. There is no pneumothorax. There is mild enlargement of the cardiac silhouette and pulmonary vascularity appears appropriate. IMPRESSION: 1. Mildly diminished lung volumes without findings to suggest pneumonia, an effusion or edema. Dictated by: Dictated on workstation # [id number]
[2022-04-15 11:25] LABS: CREATININE SERUM 1.23 MG/DL (0.60-1.30)
[2022-04-15 12:08] VITALS: BP 157/109
== END 2022-04-15 12:08 | disposition home or self-care (01) ==
LOC: EDUNIT# 10:49 → ER 10:51
DX: I25.10 Atherosclerotic heart disease of native coronary artery without angina pectoris (principal); R10.13 Epigastric pain; Z28.310 Unvaccinated for COVID-19
CPT/HCPCS: 36415; 71045; 80053; 83735; 83874; 84484; 85025; 85610; 85730; 93005; 93041

== ENCOUNTER → 2023-06-25 | Outpatient (CLI) | payer MEDICARE, OTHER ==
[~2023-06-25] MED LIST changes: +IOHEXOL 350 MG/ML 100 ML (OMNIPAQUE 350) VIAL IV ONE; +NS 100 ML (IVPB) BAG IV ONE
--- NOTE | 2023-06-25 10:26 | Diagnostic Imaging Report ---
PROCEDURE: CT chest with contrast only. TECHNIQUE: Multiple contiguous axial images were obtained through the chest after administration of intravenous contrast. Auto Exposure Controls were utilized during the CT exam to meet ALARA standards for radiation dose reduction. INDICATION: "Nodule follow-up" COMPARISON: Limited overlapped views of the lung bases obtained at an abdominal CT 07/03/2020. No lung mass or suspicious nodule. There is no thoracic lymphadenopathy. The aorta is nonaneurysmal. No central PE. The lungs showed no edema or pneumonia. There is mild dependent basilar atelectasis. There is a large retrocardiac hiatal hernia. The visible upper abdomen nonacute. IMPRESSION: No lung mass, no adenopathy, no acute abnormality. Dictated by: Dictated on workstation # [id number]
== END ==
LOC: RAD 08:30
PROVIDERS: ATTEND Internal Medicine
DX: R91.1 Solitary pulmonary nodule (principal)
CPT/HCPCS: 71260